=== PATIENT | female | born 1955 | race Hispanic/Latino ===

== ENCOUNTER 2024-08-31 14:26 | Emergency (ER) | payer OTHER ==
[~2024-08-31] VITALS: Ht 157.5 cm; Wt 55.3 kg
[2024-08-31 15:22] VITALS: BP 149/89; PULSE 80; RESP 18; TEMP 98.4; O2SAT 97
== END 2024-08-31 15:23 | disposition home or self-care (01) ==
LOC: EDH 14:26
DX: G62.9 Polyneuropathy, unspecified (principal)
CPT/HCPCS: 99282

== ENCOUNTER 2024-11-28 18:14 | Inpatient (IN) | payer OTHER ==
[~2024-11-28] VITALS: Ht 157.5 cm; Wt 50.3 kg
[~2024-11-28 18:14] MED LIST: LEVO100T12 PO; MIRT-93 PO; PREG50CA64 PO
--- NOTE | 2024-11-28 18:25 | NUR ---
PT JUST NOW PLACED IN MY ED BED 20
--- NOTE | 2024-11-28 19:18 | NUR ---
REPORT ENDORSED TO [facility]
--- NOTE | 2024-11-28 19:24 | ERN ---
General Chief Complaint: Numbness Stated Complaint: LEG Time Seen by MD: 18:38 History of Present Illness Initial Comments Mrs Ghosh is a 69-year-old female significant past medical history of chronic debility with left arm weakness who presents today with a chief complaint of left facial weakness and like weakness. Patient apparently has been having issues with mobility and movement over the last several months.. Patient has been treated for autoimmune nephropathy. Patient states she was at her baseline health earlier today when she started feeling numbness on her left face. Patient was brought here for further evaluation and care Allergies: Coded Allergies: No Known Allergies (Unverified Allergy, Unknown, 08/31/24) Home Meds Reported Medications Pregabalin (Pregabalin) 50 Mg Capsule, 50 MG PO HS, CAP 10/05/24 Mirtazapine (Mirtazapine) 30 Mg Tablet, 1 TAB PO HS for 30 Days, #30 TAB 0 Refills 10/05/24 Levothyroxine Sodium (Levothyroxine Sodium) 100 Mcg Tablet, 1 TAB PO DAILY for 30 Days, #30 TAB 0 Refills 10/05/24 Past Medical History Past Medical History: High Cholesterol, Other Medical History Other: FAILURE TO THRIVE Past Surgical History: None Female( History) History: Not Applicable ROS Dictation Constitutional: Negative for fever,chills, and weight loss Eyes: Negative for injury, pain,redness, and discharge ENT: Negative for injury,pain or swelling Cardiovascular: Negative for chest pain, palpitations, and edema Respiratory: Negative for shortness of breath, cough, and wheezing, Abdomen/GI: Negative for abdominal pain, nausea, vomiting, diarrhea, and constipation Back: Negative for injury and pain : Negative for injury, bleeding and discharge MS/Extremity: Negative for injury and deformity Skin: Negative for rash, and discoloration Neuro: Weakness, numbness over face Psych: Negative for suicide ideation, homicidal ideation, and hallucinations Physical Exam Physical Exam Dictation General: awake, alert, NAD Head/Face: Normocephalic, atraumatic Eyes: PERRL, EOMI, ENT: oral cavity clear Neck: Trachea midline, supple Cardiovascular: RRR, normal S1/S2 Respiratory: CTAB, no respiratory distress Abdomen: Soft, non-tender, non-distended Skin: Warm, dry, normal turgor, no rash MS/Extremity: Pulses equal, no cyanosis, Neuro: COAx4, GCS 15, strength 5/5 Results Laboratory and Microbiology Lab and Micro Result Laboratory Tests Test 11/28/24 19:13 White Blood Count 8.0 K/uL (4.8-10.8) Red Blood Count 3.97 MIL/uL (4.00-5.50) L Hemoglobin 11.5 g/dL (12.0-16.0) L Hematocrit 36.6 % (36-48) Mean Corpuscular Volume 92.2 fL (79-99) Mean Corpuscular Hemoglobin 29.0 pg (27.0-33.0) Mean Corpuscular Hemoglobin Concent 31.4 g/dL (32.0-36.0) L Red Cell Distribution Width 16.7 % (11.0-15.5) H Platelet Count 264 K/uL (130-400) Mean Platelet Volume 11.9 fL (7.5-10.5) H Immature Granulocyte % (Auto) 2.4 % (0-1) H Neutrophils (%) (Auto) 86.0 % (40.0-77.0) H Lymphocytes (%) (Auto) 9.1 % (21.0-51.0) L Monocytes (%) (Auto) 2.4 % (3.0-13.0) L Eosinophils (%) (Auto) 0.0 % (0.0-8.0) Basophils (%) (Auto) 0.1 % (0.0-5.0) Neutrophils # (Auto) 6.9 K/uL (1.8-7.7) Lymphocytes # (Auto) 0.7 K/uL (1.0-4.8) L Monocytes # (Auto) 0.2 K/uL (0.1-1.0) Eosinophils # (Auto) 0.00 K/uL (0.00-0.70) Basophils # (Auto) 0.01 K/uL (0.00-0.20) Absolute Immature Granulocyte (auto 0.19 K/uL (0-1) Nucleated Red Blood Cells 0.0 % (0.0-0.19) White Cell Morphology Comment See comments Sodium Level 142 mmol/L (136-145) Potassium Level 4.1 mmol/L (3.5-5.1) Chloride Level 107 mmol/L (101-111) Carbon Dioxide Level 30 mmol/L (21-32) Blood Urea Nitrogen 22 mg/dL (7-18) H Creatinine 0.7 mg/dL (0.5-1.0) Glomerular Filtration Rate Calc 93 mL/min (>90) Random Glucose 167 mg/dL (70-105) H Total Calcium 8.6 mg/dL (8.5-10.1) Total Creatine Kinase 14 U/L (21-232) #L Troponin I High Sensitivity 9.0 ng/L (4-50) MDM Patient will be admitted for further evaluation and care with a an MRI brain and spine. After speaking with of neurology he agrees with admission MDM: Differential diagnosis: Neuropathy Rationale: Tests considered and ordered secondary to shared decision making include: labs, ECG and radiology Previous outside records reviewed: Old ER visits. Risk of complication and/or morbidity or mortality of patient management: None Medications-Per medication reconciliation Need for hospitalization: Patient does meet criteria for hospitalization. Need for emergency major/minor surgery: No There are no social concerns with this patient. Prescription drug management Prescriptions will include symptomatic care Patient's prior external medical records from other ER visits were reviewed by me as indicated. Prior testing and results from previous visits were reviewed. Prior tests were taken into account with medical decision making and resource utilization, independent historian/historians were used to obtain complete medical history. I independently interpreted the test that were performed, results were reviewed by me and considered findings on radiology if ordered. Medical management and examination interpretation discussions were had by me with other qualified healthcare professionals as indicated for the patient's care. ED Course Orders Procedure Category Date Status Time Cbc With Differential LAB 11/28/24 Complete 18:50 Cardiac Panel LAB 11/28/24 Complete 18:50 Urinalysis Profile LAB 11/28/24 Logged 18:50 Chest 1vw RAD 11/28/24 Resulted 18:50 Ct Head/Brain W/O CT 11/28/24 Resulted Contrast 18:50 Basic Metabolic Panel LAB 11/28/24 Complete 18:50 Aspirin 81mg Chew Tab PHA 11/28/24 Complete (Aspirin 81mg Chew 19:00 Atorvastatin 40mg PHA 11/28/24 Complete (Lipitor 40mg) 19:00 Admit Orders ADM 11/28/24 Transmitted 20:58 Current Medications Medications (Trade) Dose Ordered Sig/Kerry Route PRN Reason Start Time Stop Time Status Last Admin Dose Admin Aspirin (Aspirin 81mg Chew Tab) 324 mg ONCE ONCE PO 11/28/24 19:00 11/28/24 19:01 DC 11/28/24 20:44 Atorvastatin Calcium (LIPItor 40MG) 40 mg ONCE ONCE PO 11/28/24 19:00 11/28/24 19:01 DC 11/28/24 20:44 Vital Signs Date Time Temp Pulse Resp B/P (MAP) Pulse Ox O2 Delivery O2 Flow Rate FiO2 11/28/24 20:05 43 16 147/82 98 Room Air* 0 21 11/28/24 18:17 97.3 49 16 148/80 98 Room Air 0 DX & DISP Disposition: Discharge Departure Impression: Primary Impression: Peripheral neuropathy Condition: Stable Referrals: SHAISTA SCHUSTER MD (PCP) TEJAL DUTTA MD Nov 28, 2024 19:24
[2024-11-28 19:42] LABS: BASOPHILS # (AUTO) 0.01 K/uL (0.00-0.20); BASOPHILS % (AUTO) 0.1 % (0.0-5.0); HEMATOCRIT 36.6 % (36-48); IMMATURE GRANULOCYTE ABSOLUTE 0.19 K/uL (0-1); LYMPHOCYTES # (AUTO) 0.7 K/uL (1.0-4.8); LYMPHOCYTES % (AUTO) 9.1 % (21.0-51.0); MEAN CORPUSCULAR HGB CONC 31.4 g/dL (32.0-36.0); MEAN CORPUSCULAR VOLUME 92.2 fL (79-99); MONOCYTES # (AUTO) 0.2 K/uL (0.1-1.0); MONOCYTES % (AUTO) 2.4 % (3.0-13.0); NEUTROPHILS # (AUTO) 6.9 K/uL (1.8-7.7); PLATELET COUNT (AUTO) 264 K/uL (130-400); RED BLOOD CELL COUNT(AUTO) 3.97 MIL/uL (4.00-5.50); RED CELL DISTRIBUTION WIDTH 16.7 % (11.0-15.5)
[2024-11-28 19:47] LABS: CREATININE 0.7 mg/dL (0.5-1.0); POTASSIUM 4.1 mmol/L (3.5-5.1)
--- NOTE | 2024-11-28 19:49 | HMCIMG ---
Exam Type: CT HEAD/BRAIN W/O CONTRAST Clinical Information: facial numbness Comparison: None CT Dose Index (CTDI): 57.33 mGy Dose Length Product (DLP): 956.79 total mGy-cm Findings: The examination shows atrophy. There is low attenuation throughout the periventricular white matter locations, consistent with chronic small vessel ischemic changes. No acute intra- or extra-axial fluid collections are seen. There is no evidence of acute or chronic hemorrhage. There is no mass effect or shift of midline structures. There are no areas to suggest acute infarct. The skull windows show no significant abnormalities. IMPRESSION: 1. ATROPHY AND CHRONIC SMALL VESSEL ISCHEMIC CHANGES. This study was performed using dose reduction techniques to include automated exposure control and/or adjustment of the mA and/or kV according to patient size.
--- NOTE | 2024-11-28 20:00 | HMCIMG ---
Exam Type: CHEST 1VW Clinical Information: SYNCOPE Comparison: None Findings: The lungs are clear of infiltrates. The heart is enlarged. Bony and soft tissue structures of the chest wall are unremarkable. IMPRESSION: Cardiomegaly. Clear lungs.
[2024-11-28] MEDS: atorVAStatin 40 MG TABLET PO ONE (20:44)
[2024-11-28] MEDS: ASPIRIN 81MG CHEW TAB PO ONE (20:44)
[2024-11-28] MEDS ORDERED: doCUSate SODIUM 100 MG CAP PO PRN (23:00)
[2024-11-28] MEDS ORDERED: acetaMINOPHEN 325 MG TAB PO PRN ×2 (23:00)
[2024-11-28] MEDS ORDERED: 0.9%NACL 1000ML 1,000 ML IV SCH (23:00)
[2024-11-28] MEDS ORDERED: ondanSETRON 4MG INJ IVP PRN (23:00)
[2024-11-28] MEDS ORDERED: acetaMINOPHEN 650 MG SUPPOSITORY RC PRN ×2 (23:00)
--- NOTE | 2024-11-29 01:17 | HP ---
[facility] HISTORY & PHYSICAL Date Patient Seen: Nov 29, 2024 Time of Visit: 01:15 Supervising Physician: Dr. Vasquez Taveras Primary Care Physician: SHAISTA SCHUSTER MD, Dr. Outpatient Specialists: Dr. Shanelle Mast, neurology in [place], [place] Dr. Kaylah Perez, rheumatology Inpatient Consults: Dr. Thurston, neurology PROBLEM LIST: Severe progressive peripheral neuropathy, POA Left leg weakness, POA Autoimmune neuropathy, POA Left facial paraesthesia, POA Severe bradycardia, asymptomatic -heart rate as low as 36 bpm baseline heart rate 40 beats per minute -suspect neurogenic bradycardia Acute on chronic kidney disease, POA Hyperglycemia, POA Failure to thrive, POA Debility/frailty/weakness, POA Cachectic Chronic anemia, POA Chronic problem list: Autoimmune neuropathy, Hypertension, hypothyroidism, hypokalemia, abnormal weight loss, leukocytosis, debility/frailty/weakness HPI: Mrs Ghosh is a 69-year-old female significant medical history of chronic debility with left arm weakness who presented to [facility] ED for evaluation of left facial numbness and weakness. Patient the patient reports chronically having issues with mobility and movement over the last several months. Patient has been treated for autoimmune nephropathy. Patient states she was at her baseline health earlier today when at 4:30 p.m. she started feeling numbness on her left face then she started with increased left leg mobility which prompted her ED visit. The patient reports that at baseline she is able to walk with a walker. She states that today she could not lift her leg out of the bed. She reports that she was recently discharged from some [facility] for therapy due to her insurance not covering. She reports that she was only one week at home and now with this weakness she is back at the hospital. She reports that her composition molder Dr. Mast and other physicians can tell her what is wrong with her. She reports that ER physician informed her that he spoke to Dr. Thurston, neurologist here at [facility] and that the plan is to MRI the head and all her spine. She reports that she agreed with this because she wants an answered to her problem. ED physician requested patient be admitted with the diagnosis of peripheral neuropathy. I went to assess the patient in ED 20. No family at bedside. Breathing is even, unlabored, heart rate 49. BP 1 40s systolic. The patient is awake, alert oriented x4. The patient denies chest pain, shortness of breath, any other pain. Upon assessment the patient is not able to lift the left leg off of the bed. She is able to move it very little. She asked me if she was able to move the leg off of the bed. Her left arm is totally flaccid and contracted she reports that her left arm is at baseline. Legs are very thin, muscle loss (cachetic). ER physician reports informing Dr. Thurston, neurology of the patient who reports that he will see the patient tomorrow. I informed the patient of labs, diagnostics, and plan of care. She verbalizes understanding and is in agreement with the plan. Plan and assessment as listed below. PAST MEDICAL HX: see above PAST SURGICAL HX: noncontributory SOCIAL HISTORY: No tobacco, ETOH, or illicit drug use Coded Allergies: No Known Allergies (Unverified Allergy, Unknown, 08/31/24) REVIEW OF SYSTEMS: 12 point ROS reviewed with patient. Pertinent positives mentioned above. Otherw ise negative. PHYSICAL EXAM: GENERAL: Alert, weak, awake oriented x 4, cachectic HEENT: EOMI, Sclera non icteric, moist mucosa NECK: Supple, no JVD, trachea midline LUNGS: Clear breath sounds bilaterally. No wheezes HEART: Regular rate and rhythm. Normal S1 and S2, without murmurs ABD: Abdomen soft, nontender. Bowel sounds present EXT: No clubbing cyanosis or edema. NEURO: Alert and oriented X4, follows commands. Unable to lifts the left leg off of the bed. She is able to move it slightly. She asked me if she was able to move the leg off of the bed. Her left arm is totally flaccid and contracted she reports that her left arm is at baseline. Legs are very thin, muscle loss (cachetic). Vital Signs (last 8hr) Date Time Temp Pulse Resp B/P (MAP) Pulse Ox O2 Delivery O2 Flow Rate FiO2 11/28/24 23:52 44 15 146/65 99 Room Air* 0 21 11/28/24 20:05 43 16 147/82 98 Room Air* 0 21 11/28/24 18:17 97.3 49 16 148/80 98 Room Air 0 LABS: Hematology Labs: Test 11/28/24 19:13 Range/Units White Blood Count 8.0 4.8-10.8 K/uL Red Blood Count 3.97 L 4.00-5.50 MIL/uL Hemoglobin 11.5 L 12.0-16.0 g/dL Hematocrit 36.6 36-48 % Mean Corpuscular Volume 92.2 79-99 fL Mean Corpuscular Hemoglobin 29.0 27.0-33.0 pg Mean Corpuscular Hemoglobin Concent 31.4 L 32.0-36.0 g/dL Red Cell Distribution Width 16.7 H 11.0-15.5 % Platelet Count 264 130-400 K/uL Mean Platelet Volume 11.9 H 7.5-10.5 fL Immature Granulocyte % (Auto) 2.4 H 0-1 % Neutrophils (%) (Auto) 86.0 H 40.0-77.0 % Lymphocytes (%) (Auto) 9.1 L 21.0-51.0 % Monocytes (%) (Auto) 2.4 L 3.0-13.0 % Eosinophils (%) (Auto) 0.0 0.0-8.0 % Basophils (%) (Auto) 0.1 0.0-5.0 % Neutrophils # (Auto) 6.9 1.8-7.7 K/uL Lymphocytes # (Auto) 0.7 L 1.0-4.8 K/uL Monocytes # (Auto) 0.2 0.1-1.0 K/uL Eosinophils # (Auto) 0.00 0.00-0.70 K/uL Basophils # (Auto) 0.01 0.00-0.20 K/uL Absolute Immature Granulocyte (auto 0.19 0-1 K/uL Nucleated Red Blood Cells 0.0 0.0-0.19 % White Cell Morphology Comment See comments Chemistry Labs: Test 11/28/24 19:13 Range/Units Sodium Level 142 136-145 mmol/L Potassium Level 4.1 3.5-5.1 mmol/L Chloride Level 107 101-111 mmol/L Carbon Dioxide Level 30 21-32 mmol/L Blood Urea Nitrogen 22 H 7-18 mg/dL Creatinine 0.7 0.5-1.0 mg/dL Glomerular Filtration Rate Calc 93 >90 mL/min Random Glucose 167 H 70-105 mg/dL Total Calcium 8.6 8.5-10.1 mg/dL Total Creatine Kinase 14 #L 21-232 U/L Troponin I High Sensitivity 9.0 4-50 ng/L DIAGNOSTICS / RADIOLOGY RESULTS: [ ] PLAN Admit to PCCU with continuous cardiac monitoring. Neuro checks every 4 hours and as needed. [id number] mg p.o. daily. Atorvastatin 40 mg p.o. daily. Blood pressure checks every 4 hours and as needed. Monitor heart rate closely. Systolic blood pressure between 120 and 160 to maintain adequate brain perfusion. Keep NPO for now until passes dysphagia screen by nurse. Plan for MRI in the morning. Pending echo complete with spectral +color Doppler. Consult Neurology in the morning left leg weakness, worsening from baseline and facial paresthesia. (ED did the initial consult to neurology on 11/28/2024. Who agrees to see the patient as consult) Consult cardiology in the morning for bradycardia heart rate as low as 36 bpm. Reconcile home medications once available. Glucometer checks a.c. and HS with insulin regular sliding scale per protocol. PT and OT evaluation and treat. A.m. labs. Monitor renal and liver function. Monitor electrolytes and treat accordingly. GI and DVT prophylaxis. NEURO: Minimize central acting medications as possible. Maintain fall precautions, adequate lighting during the day PULMONARY: Supplemental 02 as needed. Maintain aspiration precautions at all times CARDIOVASCULAR: Follow hemodynamics. Vital signs per facility protocol GI & NUTRITION: Continue with nutritional support. Continue stool softeners and laxatives as needed. KIDNEYS & ELECTROLYTES: Strict monitoring of intake, output and overall fluid balance. Avoid nephrotoxic medications to the extent possible. Medications to be dosed according to renal function. Monitor electrolytes and replace as needed ENDOCRINE: Maintain blood glucose between 100-180 at all times. Hypoglycemia protocol in place INFECTIOUS DISEASE: Trend temperature, WBC and procalcitonin level Follow cultures, deescalate antibiotics as soon as possible. Panculture if new onset fever ONCOLOGY/HEMATOLOGY/COAGULATION: Monitor for s/s of bleeding Monitor hemoglobin, coagulation studies as needed SKIN: Pressure ulcer prevention per facility protocol Specialty mattress ORTHO/REHAB: Continue PT/OT Prophylaxis: Continue GI and DVT prophylaxis Code Status: Full Resuscitation Disposition: TBD Due to a high probability for clinically significant, life-threatening deterioration, the patient required my highest level of preparedness to intervene emergently, and I personally spent 60 minutes of critical care time directly and personally managing the patient. I devoted my full attention to the patient during this time, which is separate from time spent on any billable procedures. This includes time spent involved in work directly related to the care of the patient: such as review of prior records, development of treatment plan with patient as well as nursing, discussions with consultants, evaluation of patient's response to treatment, examination of patient, obtaining history from patient, ordering and performing treatments and interventions, ordering and review of laboratory studies, ordering and review of radiographic studies, pulse oximetry and re-evaluation of patient's condition, discussions with the family members and the patient, and any required documentation. This critical care time was performed to assess and manage the high probability of imminent life- threatening deterioration that could result in multi-organ failure. This dictation was prepared using iPling voice recognition software. As a result, errors may occur. When identified, these errors have been corrected. While every attempt is made to correct errors during dictation, errors may still exist. NORAH CADET LICENSED NURSE PRACTITIONER Nov 29, 2024 01:17
--- NOTE | 2024-11-29 04:59 | NUR ---
PATIENT HEART RATED NOTED TO BE 36 SIN[address] ROCHELLE; PATIENT ASYPTOMATIC VERBAL AND CONVERSIVE; PATIENT FOLLOWS COMMANDS AND QUESTIONS; ALYSSIA PRODUCE SORTER WITH ADMITTING TEAM NOTIFIED.
--- NOTE | 2024-11-29 06:31 | NUR ---
EKG SHOWN TO ALYSSIA FRONT DESK RECEPTIONIST LIQUEFACTION AND REGASIFICATION HELPER; CONSULT CARDIOLOGY IN AM AND UPGRADE TO PCCU.
[2024-11-29 06:55] LABS: APPEARANCE,URINE CLEAR (CLEAR); BILIRUBIN,URINE NEGATIVE (NEGATIVE); COLOR,URINE COLORLESS (YELLOW); GLUCOSE, URINE (UA) NEGATIVE (NEGATIVE); KETONES,URINE NEGATIVE (NEGATIVE); LEUKOCYTE ESTERASE ,URINE NEGATIVE Leu/uL (NEGATIVE); NITRATE,URINE NEGATIVE (NEGATIVE); OCCULT BLOOD,URINE NEGATIVE (NEGATIVE); PH,URINE 7.5 (5.0-8.0); PROTEIN,URINE NEGATIVE (NEGATIVE); UROBILINOGEN,URINE 0.2 mg/dL (0.2-1.0)
--- NOTE | 2024-11-29 07:12 | NUR ---
REPORT GIVEN TO PRASANNA RN AT THIS TIME
[2024-11-29 07:17] LABS: ADD UA MICROSCOPIC NO
[2024-11-29 08:04] LABS: HEMOGLOBIN A1C 5.5 % (4.0-6.0)
[2024-11-29 08:16] LABS: CHOLESTEROL 189 mg/dL (<200); HDL CHOLESTEROL 77 mg/dL (35-85); LDL DIRECT 84 mg/dL (0-99); TRIGLYCERIDES 161 mg/dL (30-200)
--- NOTE | 2024-11-29 08:30 | NUR ---
PT CLEANED OF INCONTINENCE, LINEN CHANGED, PUREWICK PLACED, PT TOLORATED WELL
--- NOTE | 2024-11-29 08:37 | EKG ---
[facility] Test Date: 2024-11-29 Test Time: 06:18:47 Pat Name: SUSU CANO Department: [facility] Room: 228 Gender: F Necktie Turner: [id number] : 1955 Requested By: NORAH CADET Order Number: [id number] Reading MD: Marcio Viveros Measurements Intervals [place] Rate: 36 P: 36 TX: 143 QRS: -28 QRSD: 112 T: 5 QT: 588 QTc: 453 Interpretive Statements Sinus bradycardia Compared to ECG 10/05/2024 15:48:41 Sinus rhythm no longer present Prolonged QT interval no longer present Electronically Signed On 11-29-2024 21:24:05 BRIDGES AND BUILDINGS SUPERVISOR by Marcio Viveros Please click the below link to view image of tracing.
[2024-11-29] MEDS: ENOXAPARIN SODIUM 30 MG/0.3 ML SQ SCH (09:40)
[2024-11-29] MEDS: ASPIRIN 81MG CHEW TAB PO SCH (09:41)
[2024-11-29] MEDS: FAMOTIDINE 20MG TAB PO SCH (09:44)
[2024-11-29] MEDS: atorVAStatin 40 MG TABLET PO SCH (09:44)
--- NOTE | 2024-11-29 11:30 | NUR ---
BS-73, DR. FALLON PAGED TO MAKE AWARE DUE TO PT NPO STATUS.
--- NOTE | 2024-11-29 12:42 | NUR ---
SHERLY RETURNED CALL, REPORTED BS- 73, BEDSIDE SWOLLOW AND MAY HAVE A CONSISTENT CARB DIET.
--- NOTE | 2024-11-29 14:55 | NUR ---
SPEECH LANGUAGE EVALUATION: Patient was evaluated with a comprehensive expressive, receptive, and cognitive assessment and presented with a mild cognitive deficits and mild dysarthria. As per patient, this is not a new onset and has been receiving outpatient therapy services since her last hospitalization (2 months ago). Patient was oriented x4 and was able to express wants and needs in complete sentences with adequate description. Patient's expressive/receptive language abilities are within normal limits for her level of education. In the area of cognition, patient demonstrated mild deficits in short term memory recall as indicated by a score of 13/15 on BIMS. Patient presented with symptoms of mild dysarthria as characterized by slurred speech. Intelligibility however, is intact. As per patient and spouse, symptoms appeared 2-3 months ago and have improved greatly since then. Speech therapy not warranted at this time. LITIGATION MANAGER reviewed results and recommendations with patient, family, and JIGAR Ag. Patient/family voiced understanding. All questions answered. Addendum: 11/29/24 at 1554 by NIGHAT MONTANA Amended: Links added.
--- NOTE | 2024-11-29 15:00 | NUR ---
BEDSIDE SWALLOW EVAL COMPLETED. No s/s of aspiration. Recommend chopped solids, thin liquids, and whole meds with liquids. Compensatory strategies 1. Sit upright 2. slow oral intake 3. Alt between solids and liquids BREAKER ENGINEER reviewed results and recommendations with patient, family, and nurse Ancelmo. BREAKER ENGINEER educated patient on risk and consequences of aspiration. Speech Therapy not warranted at this time. All questions answered. Addendum: 11/29/24 at 1559 by NIGHAT MONTANA Amended: Links added.
[2024-11-29 15:30] VITALS: BP 128/73; PULSE 54; RESP 20; TEMP 98.7
[2024-11-29] MEDS ORDERED: OMEP40CA21 PO (16:02)
[2024-11-29] MEDS ORDERED: PRED20TA3 PO ×2 (16:02)
[2024-11-29] MEDS ORDERED: METO25TA6 PO (16:02)
[2024-11-29] MEDS ORDERED: LEVO112T7 PO (16:02)
[2024-11-29 16:22] VITALS: O2SAT 98
--- NOTE | 2024-11-29 18:28 | PN ---
[facility] PROGRESS NOTE Date Patient Seen: Nov 29, 2024 Time of Visit: 18:27 Supervising Physician: Dr. Taveras Primary Care Physician: SHAISTA SCHUSTER MD, Dr. Outpatient Specialists: Dr. Shanelle Mast, neurology in [place], [place] Dr. Kaylah Perez, rheumatology Inpatient Consults: Dr. Thurston, neurology PROBLEM LIST: Severe progressive peripheral neuropathy, POA Left leg weakness, POA Autoimmune neuropathy, POA Left facial paraesthesia, POA Severe bradycardia, asymptomatic -heart rate as low as 36 bpm baseline heart rate 40 beats per minute -suspect neurogenic bradycardia Acute on chronic kidney disease, POA Hyperglycemia, POA Failure to thrive, POA Debility/frailty/weakness, POA Cachectic Chronic anemia, POA Chronic problem list: Autoimmune neuropathy, Hypertension, hypothyroidism, hypokalemia, abnormal weight loss, leukocytosis, debility/frailty/weakness INTERVAL HISTORY: HPI: Mrs Ghosh is a 69-year-old female significant medical history of chronic debility with left arm weakness who presented [place] [facility] for evaluation of left facial numbness and weakness. Patient the patient reports chronically having issues with mobility and movement over the last several months. Patient has been treated for autoimmune nephropathy. Patient states she was at her baseline health earlier today when at 4:30 p.m. she started feeling numbness on her left face then she started with increased left leg mobility which prompted her ED visit. The patient reports that at baseline she is able to walk with a walker. She states that today she could not lift her leg out of the bed. She reports that she was recently discharged from some [facility] for therapy due to her insurance not covering. She reports that she was only one week at home and now with this weakness she is back at the hospital. 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 She reports that ER physician informed her that he spoke to Dr. Thurston, neurologist here at [facility] and that the plan is to MRI the head and all her spine. She reports that she agreed with this because she wants an answered to her problem. ED physician requested patient be admitted with the diagnosis of peripheral neuropathy. Interval history 11/29 patient is awake and oriented x3 no event overnight. Patient stated that her left-side motor function remains weak. Patient has left upper arm paralysis but was able to move bilateral lower extremity. This times is unable to do that. We will obtain MRI of the brain. Otherwise we will obtain lab in the morning. We will obtain recommendation from Neurology. Home medications. REVIEW OF SYSTEMS: 12 point ROS reviewed with patient. Pertinent positives mentioned above. Otherwise negative. PHYSICAL EXAM: GENERAL: Alert, weak, awake oriented x 4, cachectic HEENT: EOMI, Sclera non icteric, moist mucosa NECK: Supple, no JVD, trachea midline LUNGS: Clear breath sounds bilaterally. No wheezes HEART: Regular rate and rhythm. Normal S1 and S2, without murmurs ABD: Abdomen soft, nontender. Bowel sounds present EXT: No clubbing cyanosis or edema. NEURO: Alert and oriented X4, follows commands. Unable to lifts the left leg off of the bed. She is able to move it slightly. She asked me if she was able to move the leg off of the bed. Her left arm is totally flaccid and contracted she reports that her left arm is at baseline. Legs are very thin, muscle loss (cachetic). Vital Signs (last 8hr) Date Time Temp Pulse Resp B/P (MAP) Pulse Ox O2 Delivery O2 Flow Rate FiO2 11/29/24 16:22 98 Room Air* 0 21 11/29/24 15:30 98.8 54 20 128/73 98 Room Air 11/29/24 15:00 N/A Room Air 11/29/24 14:59 55 20 121/56 99 Room Air* 0 21 11/29/24 14:00 55 20 98 Room Air* 0 21 LABS: Hematology Labs: Test 11/28/24 19:13 Range/Units White Blood Count 8.0 4.8-10.8 K/uL Red Blood Count 3.97 L 4.00-5.50 MIL/uL Hemoglobin 11.5 L 12.0-16.0 g/dL Hematocrit 36.6 36-48 % Mean Corpuscular Volume 92.2 79-99 fL Mean Corpuscular Hemoglobin 29.0 27.0-33.0 pg Mean Corpuscular Hemoglobin Concent 31.4 L 32.0-36.0 g/dL Red Cell Distribution Width 16.7 H 11.0-15.5 % Platelet Count 264 130-400 K/uL Mean Platelet Volume 11.9 H 7.5-10.5 fL Immature Granulocyte % (Auto) 2.4 H 0-1 % Neutrophils (%) (Auto) 86.0 H 40.0-77.0 % Lymphocytes (%) (Auto) 9.1 L 21.0-51.0 % Monocytes (%) (Auto) 2.4 L 3.0-13.0 % Eosinophils (%) (Auto) 0.0 0.0-8.0 % Basophils (%) (Auto) 0.1 0.0-5.0 % Neutrophils # (Auto) 6.9 1.8-7.7 K/uL Lymphocytes # (Auto) 0.7 L 1.0-4.8 K/uL Monocytes # (Auto) 0.2 0.1-1.0 K/uL Eosinophils # (Auto) 0.00 0.00-0.70 K/uL Basophils # (Auto) 0.01 0.00-0.20 K/uL Absolute Immature Granulocyte (auto 0.19 0-1 K/uL Nucleated Red Blood Cells 0.0 0.0-0.19 % White Cell Morphology Comment See comments Chemistry Labs: Test 11/29/24 11:36 11/29/24 07:24 11/28/24 19:13 Range/Units Whole Blood Glucose 73 70-110 MG/DL Hemoglobin A1c 5.5 4.0-6.0 % Estimated Average Glucose (eAG) 111 70-126 mg/dL Triglycerides Level 161 30-200 mg/dL Cholesterol Level 189 # <200 mg/dL LDL Cholesterol 84 0-99 mg/dL HDL Cholesterol 77 35-85 mg/dL Sodium Level 142 136-145 mmol/L Potassium Level 4.1 3.5-5.1 mmol/L Chloride Level 107 101-111 mmol/L Carbon Dioxide Level 30 21-32 mmol/L Blood Urea Nitrogen 22 H 7-18 mg/dL Creatinine 0.7 0.5-1.0 mg/dL Glomerular Filtration Rate Calc 93 >90 mL/min Random Glucose 167 H 70-105 mg/dL Total Calcium 8.6 8.5-10.1 mg/dL Total Creatine Kinase 14 #L 21-232 U/L Troponin I High Sensitivity 9.0 4-50 ng/L DIAGNOSTICS / RADIOLOGY RESULTS: [ ] PLAN Admit to PCCU with continuous cardiac monitoring. Neuro checks every 4 hours and as needed. Dvfythm59 mg p.o. daily. Atorvastatin 40 mg p.o. daily. Blood pressure checks every 4 hours and as needed. Monitor heart rate closely. Systolic blood pressure between 120 and 160 to maintain adequate brain perfusion. Keep NPO for now until passes dysphagia screen by nurse. Plan for MRI in the morning. Pending echo complete with spectral +color Doppler. Consult Neurology in the morning left leg weakness, worsening from baseline and facial paresthesia. (ED did the initial consult to neurology on 11/28/2024. Who agrees to see the patient as consult) Consult cardiology in the morning for bradycardia heart rate as low as 36 bpm. Reconcile home medications once available. Glucometer checks a.c. and HS with insulin regular sliding scale per protocol. PT and OT evaluation and treat. A.m. labs. Monitor renal and liver function. Monitor electrolytes and treat accordingly. GI and DVT prophylaxis. NEURO: Minimize central acting medications as possible. Maintain fall precautions, adequate lighting during the day PULMONARY: Supplemental 02 as needed. Maintain aspiration precautions at all times CARDIOVASCULAR: Follow hemodynamics. Vital signs per facility protocol GI & NUTRITION: Continue with nutritional support. Continue stool softeners and laxatives as needed. KIDNEYS & ELECTROLYTES: Strict monitoring of intake, output and overall fluid balance. Avoid nephrotoxic medications to the extent possible. Medications to be dosed according to renal function. Monitor electrolytes and replace as needed ENDOCRINE: Maintain blood glucose between 100-180 at all times. Hypoglycemia protocol in place INFECTIOUS DISEASE: Trend temperature, WBC and procalcitonin level Follow cultures, deescalate antibiotics as soon as possible. Panculture if new onset fever ONCOLOGY/HEMATOLOGY/COAGULATION: Monitor for s/s of bleeding Monitor hemoglobin, coagulation studies as needed SKIN: Pressure ulcer prevention per facility protocol Specialty mattress ORTHO/REHAB: Continue PT/OT Prophylaxis: Continue GI and DVT prophylaxis Code Status: Full Resuscitation Disposition: AGNES CASTILLOJAKI COYLOBO KESSLER Nov 29, 2024 18:28
[2024-11-29 19:45] VITALS: BP 126/69; PULSE 53; RESP 16; TEMP 97.8
[2024-11-29 20:00] VITALS: O2SAT 98
[2024-11-29] MEDS: mirtAZAPine 15 MG TABLET PO SCH (20:42)
[2024-11-29] MEDS: predniSONE 20 MG TABLET PO SCH (20:42)
--- NOTE | 2024-11-29 22:13 | HMCIMG ---
CAROTID ULTRASOUND CLINICAL INFORMATION:left sided paralysis Carotid bifurcations: There is mild calcified plaque at the bilateral carotid bifurcations. Vertebrals: Antegrade bilaterally RCCA: 47 cm/s LCCA: 43 cm/s ERICKA: 57 cm/s LICA: 61 cm/s Ratio: 1.2 Ratio: 1.4 IMPRESSION: Mild atherosclerotic vascular disease with no identified hemodynamically significant stenoses.
[2024-11-29 22:54] VITALS: BP 137/74; PULSE 52; RESP 16; TEMP 98.2
[2024-11-30] VITALS (7 sets, daily range): BP systolic 149–181; BP diastolic 70–99; PULSE 49–75; RESP 16–20; TEMP 97–98.2; O2SAT 100
[2024-11-30 03:58] LABS: BASOPHILS # (AUTO) 0.03 K/uL (0.00-0.20); BASOPHILS % (AUTO) 0.3 % (0.0-5.0); EOSINOPHILS # (AUTO) 0.04 K/uL (0.00-0.70); EOSINOPHILS % (AUTO) 0.4 % (0.0-8.0); HEMATOCRIT 40.2 % (36-48); IMMATURE GRANULOCYTE ABSOLUTE 0.19 K/uL (0-1); LYMPHOCYTES # (AUTO) 1.2 K/uL (1.0-4.8); LYMPHOCYTES % (AUTO) 12.3 % (21.0-51.0); MEAN CORPUSCULAR HEMOGLOBIN 29.6 pg (27.0-33.0); MEAN CORPUSCULAR HGB CONC 31.8 g/dL (32.0-36.0); MEAN CORPUSCULAR VOLUME 93.1 fL (79-99); MONOCYTES # (AUTO) 0.2 K/uL (0.1-1.0); MONOCYTES % (AUTO) 2.1 % (3.0-13.0); NEUTROPHILS # (AUTO) 7.7 K/uL (1.8-7.7); NEUTROPHILS % (AUTO) 82.9 % (40.0-77.0); PLATELET COUNT (AUTO) 198 K/uL (130-400); RED BLOOD CELL COUNT(AUTO) 4.32 MIL/uL (4.00-5.50); WHITE BLOOD COUNT (AUTO) 9.3 K/uL (4.8-10.8)
[2024-11-30 04:31] LABS: POTASSIUM 4.4 mmol/L (3.5-5.1); THYROID STIMULATING HORMONE 3.79 uIU/mL (0.36-3.74)
[2024-11-30] MEDS: levoTHYROxine 100 MCG TABLET PO SCH (06:30)
[2024-11-30] MEDS: levoTHYROxine 112 MCG TABLET PO SCH (06:33)
--- NOTE | 2024-11-30 06:36 | CONS ---
CONSULTATION NOTE Date of Service: Nov 30, 2024 Reason for Consultation: Evaluate generalized weakness Requesting Physician: Dr. Wlilson HISTORY OF PRESENT ILLNESS: This is a 69 years old right-handed lady that has a past medical history re markable for pulmonary fibrosis, hypothyroidism who was admitted for evaluation and management of generalized weakness. The patient states that her weakness started about eight months ago with slowly progressive muscle weakness that started on bilateral lower extremities. According to patient's she started having feet numbness that progressed into numbness and tingling in both feet and hands. Around that time the patient was also diagnosed with pulmonary fibrosis and was started on a medication that caused her to have diarrhea. She mentions that the patient went to see Dr. Mast neurologist in [facility] who diagnosed her with a mild peripheral neuropathy. Over the past four months her muscle weakness have progressed to the point that she was having difficulty ambulating. She was recently discharged from this institution after per patient she was diagnosed with hypothyroidism and needed to be better controlled subsequently the patient was treated add inpatient rehabilitation center where she was completing her therapy. The patient states that over the past 24 hours prior to admission she had a sudden onset of worsening left upper and lower extremity weakness to the point that she was not able to move both extremities. For this reason the patient came into our emergency room. Of note, the patient has severe weight loss over the past several months going from 190-120 lb. The patient also states having an autoimmune diagnosis by Dr. Yun. REVIEW OF SYSTEMS CONSTITUTIONAL: Positive for fatigue. HEAD/FACE: No signs of trauma. EENT: Denies eye pain, blurred vision, double vision, or light sensitivity. RESPIRATORY: Denies shortness of breath, cough, wheezing CARDIOVASCULAR: Denies chest pain, palpitation, syncope GASTROINTESTINAL/ABDOMINAL: Denies abdominal pain, constipation, diarrhea, nausea or vomiting GENITOURINARY: Denies dysuria or hematuria. MUSCULOSKELETAL: Denies joint pain, tenderness, or trauma. INTEGUMENTARY: Denies rash or itchiness NEUROLOGICAL/PSYCH: Bilateral lower extremities weakness PAST MEDICAL HISTORY: Pulmonary fibrosis, hypothyroidism PAST SURGICAL HISTORY: Unknown PAST SOCIAL HISTORY: No tobacco alcohol recreational drug abuse FAMILY HISTORY: No family history of stroke or seizures Coded Allergies: No Known Allergies (Unverified Allergy, Unknown, 08/31/24) PHYSICAL EXAM Mental status: The patient is alert, attentive, and oriented. Speech is clear and fluent with good repetition, comprehension, and naming. Pt recalls 3/3 objects at 5 minutes. Cranial nerves: CN II: Visual wynne are full to confrontation. CN III, IV, : At primary gaze, there is no eye deviation. CN V: Facial sensation is intact to pinprick in all 3 divisions bilaterally. Corneal responses are intact. CN VII: Face is symmetric with normal eye closure and smile. CN VIII: Hearing is normal to rubbing fingers CN IX, X: Palate elevates symmetrically. Phonation is normal. CN XI: Head turning and shoulder shrug are intact CN XII: Tongue is midline with normal movements and no atrophy. Motor: Severe weakness in bilateral upper or lower extremities with hemiplegia in the left upper and lower extremities. The patient has severe muscle atrophy in bilateral upper and lower extremities Reflexes: Reflexes are 0+ and symmetric at the biceps, triceps, knees, and ankles. Plantar responses are flexor. Sensory: Light touch, pinprick, position sense, and vibration sense are intact in fingers and toes. Coordination: Difficulty with rapid alternating movements of to weakness Gait/Stance: Not evaluated Vital Sign (Last 24 Hours) 11/29/24 11/30/24 20:00 03:16 Temp 98.1 Pulse 50 Resp 16 B/P (MAP) 159/79 Pulse Ox 98 O2 Delivery Room Air O2 Flow Rate 0 FiO2 21 Intake & Output (last 24hrs) 11/29/24 11/29/24 11/30/24 15:00 23:00 07:00 Intake Total 225.0 ml 1100.0 ml Output Total 1200 ml Balance 225.0 ml -100.0 ml LABS: Laboratory: Test 11/30/24 05:26 11/30/24 03:42 11/29/24 07:24 11/29/24 06:25 Range/Units Whole Blood Glucose 156 #H 70-110 MG/DL White Blood Count 9.3 4.8-10.8 K/uL Red Blood Count 4.32 4.00-5.50 MIL/uL Hemoglobin 12.8 12.0-16.0 g/dL Hematocrit 40.2 36-48 % Mean Corpuscular Volume 93.1 79-99 fL Mean Corpuscular Hemoglobin 29.6 27.0-33.0 pg Mean Corpuscular Hemoglobin Concent 31.8 L 32.0-36.0 g/dL Red Cell Distribution Width 17.0 H 11.0-15.5 % Platelet Count 198 130-400 K/uL Mean Platelet Volume 11.3 H 7.5-10.5 fL Immature Granulocyte % (Auto) 2.0 H 0-1 % Neutrophils (%) (Auto) 82.9 H 40.0-77.0 % Lymphocytes (%) (Auto) 12.3 L 21.0-51.0 % Monocytes (%) (Auto) 2.1 L 3.0-13.0 % Eosinophils (%) (Auto) 0.4 0.0-8.0 % Basophils (%) (Auto) 0.3 0.0-5.0 % Neutrophils # (Auto) 7.7 1.8-7.7 K/uL Lymphocytes # (Auto) 1.2 1.0-4.8 K/uL Monocytes # (Auto) 0.2 0.1-1.0 K/uL Eosinophils # (Auto) 0.04 0.00-0.70 K/uL Basophils # (Auto) 0.03 0.00-0.20 K/uL Absolute Immature Granulocyte (auto 0.19 0-1 K/uL Nucleated Red Blood Cells 0.0 0.0-0.19 % Sodium Level 141 136-145 mmol/L Potassium Level 4.4 3.5-5.1 mmol/L Chloride Level 105 101-111 mmol/L Carbon Dioxide Level 31 21-32 mmol/L Blood Urea Nitrogen 26 H 7-18 mg/dL Creatinine 1.0 0.5-1.0 mg/dL Glomerular Filtration Rate Calc 61 >90 mL/min Random Glucose 147 H 70-105 mg/dL Total Calcium 8.9 8.5-10.1 mg/dL Thyroid Stimulating Hormone (TSH) 3.79 #H 0.36-3.74 uIU/mL Hemoglobin A1c 5.5 4.0-6.0 % Estimated Average Glucose (eAG) 111 70-126 mg/dL Triglycerides Level 161 30-200 mg/dL Cholesterol Level 189 # <200 mg/dL LDL Cholesterol 84 0-99 mg/dL HDL Cholesterol 77 35-85 mg/dL Urine Color COLORLESS YELLOW Urine Appearance CLEAR CLEAR Urine pH 7.5 5.0-8.0 Urine Specific [place] 1.008 1.001-1.031 Urine Protein NEGATIVE NEGATIVE mg/dL Urine Glucose (UA) NEGATIVE NEGATIVE mg/dL Urine Ketones NEGATIVE NEGATIVE mg/dL Urine Occult Blood NEGATIVE NEGATIVE Urine Nitrate NEGATIVE NEGATIVE Urine Bilirubin NEGATIVE NEGATIVE mg/dL Urine Urobilinogen 0.2 0.2-1.0 mg/dL Urine Leukocyte Esterase NEGATIVE NEGATIVE Juliane/uL Test 11/28/24 19:13 Range/Units White Cell Morphology Comment See comments Total Creatine Kinase 14 #L 21-232 U/L Troponin I High Sensitivity 9.0 4-50 ng/L DIAGNOSTICS / RADIOLOGY: CT scan of the head without contrast: Cortical atrophy ASSESSMENT / PLAN: 1).- chronic polyneuropathy - based on the patient's history and physical examination it is likely this patient has a progressive neurodegenerative chronic polyneuropathy with possible diagnosis including CIDP. Other possible diagnosis includes an autoimmune myopathy but this is less likely. The patient will also be evaluated for possible cervical thoracic and lumbar spine deg eneration causing her overall weakness. We will obtain an MRI of the brain thoracic and lumbar spine with and without contrast. If negative then we will request a lumbar puncture to evaluate for CIDP. I will obtain laboratory workup including ESR, CRP, vitamin B12, folate, anti Marisel, SUSU, CK to evaluate for autoimmune disorders. Obtain more information from Dr. Yun in regards of the reason diagnosis of autoimmune disorder. Request PT/OT prior to discharge Thank you for your consultation JERRY YBARRA MD Nov 30, 2024 06:35
[2024-11-30] MEDS: PANTOPrazole 40 MG TAB DR PO SCH (09:08)
--- NOTE | 2024-11-30 11:30 | PN ---
[facility] PROGRESS NOTE Date Patient Seen: Nov 30, 2024 Time of Visit: 11:30 Supervising Physician: Vasquez Taveras MD Primary Care Physician: SHAISTA SCHUSTER MD, Dr. Outpatient Specialists: Dr. Shanelle Mast, neurology in [place], [place] Dr. Kaylah Perez, rheumatology Inpatient Consults: Dr. Thurston, neurology PROBLEM LIST: Severe progressive peripheral neuropathy, POA Left leg weakness, POA Autoimmune neuropathy, POA Left facial paraesthesia, POA Severe bradycardia, asymptomatic -heart rate as low as 36 bpm baseline heart rate 40 beats per minute -suspect neurogenic bradycardia Acute on chronic kidney disease, POA Hyperglycemia, POA Failure to thrive, POA Debility/frailty/weakness, POA Cachectic Chronic anemia, POA Chronic problem list: Autoimmune neuropathy, Hypertension, hypothyroidism, hypokalemia, abnormal weight loss, leukocytosis, debility/frailty/weakness INTERVAL HISTORY: HPI: Mrs Ghosh is a 69-year-old female significant medical history of chronic debility with left arm weakness who presented to [facility] ED for evaluation of left facial numbness and weakness. Patient the patient reports chronically having issues with mobility and movement over the last several months. Patient has been treated for autoimmune nephropathy. Patient states she was at her baseline health earlier today when at 4:30 p.m. she started feeling numbness on her left face then she started with increased left leg mobility which prompted her ED visit. The patient reports that at baseline she is able to walk with a walker. She states that today she could not lift her leg out of the bed. She reports that she was recently discharged from some [facility] for therapy due to her insurance not covering. She reports that she was only one week at home and now with this weakness she is back at the hospital. She reports that her top former Dr. Mast and other physicians can tell her what is wrong with her. She reports that ER physician informed her that he spoke to Dr. Thurston, neurologist here at [facility] and that the plan is to MRI the head and all her spine. She reports that she agreed with this because she wants an answered to her problem. ED physician requested patient be admitted with the diagnosis of peripheral neuropathy. Interval history 11/29 patient is awake and oriented x3 no event overnight. Patient stated that her left-side motor function remains weak. Patient has left upper arm paralysis but was able to move bilateral lower extremity. This times is unable to do that. We will obtain MRI of the brain. Otherwise we will obtain lab in the morning. We will obtain recommendation from Neurology. Home medications. 11/30- patient is awake alert and oriented x3. She continues with generalized body weakness with increased weakness to left side. Otherwise no major overnight events. Patient is in no apparent distress. He is hemodynamically stable and afebrile. CBC unremarkable similar to yesterday with neutrophils trending down 82.9 today. ESR is 43 elevated. Chemistry is unremarkable creatinine is 1.0 GFR of 61 slightly decreased from yesterday. TSH is 3.79. Patient continues on her levothyroxine. Patient is pending MRI of the brain, thoracic, lumbar and cervical spine. Carotid ultrasound shows mild ar teriosclerotic vascular disease with no identified hemodynamically significant stenosis. REVIEW OF SYSTEMS: 12 point ROS reviewed with patient. Pertinent positives mentioned above. Otherwise negative. PHYSICAL EXAM: GENERAL: Alert, weak, awake oriented x 4, cachectic HEENT: EOMI, Sclera non icteric, moist mucosa NECK: Supple, no JVD, trachea midline LUNGS: Clear breath sounds bilaterally. No wheezes HEART: Regular rate and rhythm. Normal S1 and S2, without murmurs ABD: Abdomen soft, nontender. Bowel sounds present EXT: No clubbing cyanosis or edema. NEURO: Alert and oriented X4, follows commands. Unable to lifts the left leg off of the bed. She is able to move it slightly. She asked me if she was able to move the leg off of the bed. Her left arm is totally flaccid and contracted she reports that her left arm is at baseline. Legs are very thin, muscle loss (cachetic). Vital Signs (last 8hr) Date Time Temp Pulse Resp B/P (MAP) Pulse Ox O2 Delivery O2 Flow Rate FiO2 11/30/24 07:10 100 Room Air* 0 21 11/30/24 07:00 97.7 53 20 149/75 100 Room Air LABS: Hematology Labs: Test 11/30/24 03:42 11/28/24 19:13 Range/Units White Blood Count 9.3 4.8-10.8 K/uL Red Blood Count 4.32 4.00-5.50 MIL/uL Hemoglobin 12.8 12.0-16.0 g/dL Hematocrit 40.2 36-48 % Mean Corpuscular Volume 93.1 79-99 fL Mean Corpuscular Hemoglobin 29.6 27.0-33.0 pg Mean Corpuscular Hemoglobin Concent 31.8 L 32.0-36.0 g/dL Red Cell Distribution Width 17.0 H 11.0-15.5 % Platelet Count 198 130-400 K/uL Mean Platelet Volume 11.3 H 7.5-10.5 fL Immature Granulocyte % (Auto) 2.0 H 0-1 % Neutrophils (%) (Auto) 82.9 H 40.0-77.0 % Lymphocytes (%) (Auto) 12.3 L 21.0-51.0 % Monocytes (%) (Auto) 2.1 L 3.0-13.0 % Eosinophils (%) (Auto) 0.4 0.0-8.0 % Basophils (%) (Auto) 0.3 0.0-5.0 % Neutrophils # (Auto) 7.7 1.8-7.7 K/uL Lymphocytes # (Auto) 1.2 1.0-4.8 K/uL Monocytes # (Auto) 0.2 0.1-1.0 K/uL Eosinophils # (Auto) 0.04 0.00-0.70 K/uL Basophils # (Auto) 0.03 0.00-0.20 K/uL Absolute Immature Granulocyte (auto 0.19 0-1 K/uL Nucleated Red Blood Cells 0.0 0.0-0.19 % Erythrocyte Sedimentation Rate 43 H 0-30 MM/HR White Cell Morphology Comment See comments Chemistry Labs: Test 11/30/24 11:10 11/30/24 03:42 11/29/24 07:24 11/28/24 19:13 Range/Units Whole Blood Glucose 114 H 70-110 MG/DL Bedside Glucose Comment Notified Nurse Sodium Level 141 136-145 mmol/L Potassium Level 4.4 3.5-5.1 mmol/L Chloride Level 105 101-111 mmol/L Carbon Dioxide Level 31 21-32 mmol/L Blood Urea Nitrogen 26 H 7-18 mg/dL Creatinine 1.0 0.5-1.0 mg/dL Glomerular Filtration Rate Calc 61 >90 mL/min Random Glucose 147 H 70-105 mg/dL Total Calcium 8.9 8.5-10.1 mg/dL Total Creatine Kinase 19 #L 21-232 U/L C-Reactive Protein, Quantitative 2.90 0.5-3.0 mg/L Vitamin B12 Level 483 193-986 pg/mL Folic Acid (LAB) 6.70 2-20 ng/mL Thyroid Stimulating Hormone (TSH) 3.79 #H 0.36-3.74 uIU/mL Hemoglobin A1c 5.5 4.0-6.0 % Estimated Average Glucose (eAG) 111 70-126 mg/dL Triglycerides Level 161 30-200 mg/dL Cholesterol Level 189 # <200 mg/dL LDL Cholesterol 84 0-99 mg/dL HDL Cholesterol 77 35-85 mg/dL Troponin I High Sensitivity 9.0 4-50 ng/L DIAGNOSTICS / RADIOLOGY RESULTS: [ ] Signed PATIENT: SUSU GHOSH MR#: [id number] : 1955 SEX: F AGE: 69 LOCATION: [facility] ORDER 24 STATUS: ADM IN REPORT#: [id number] SERVICE 22 REASON: left sided paralysis ORDERING PHYSICIAN: OCHOA OJEDA CNP PROCEDURE: CAROTID - US CAROTID DUPLEX CAROTID ULTRASOUND CLINICAL INFORMATION:left sided paralysis Carotid bifurcations: There is mild calcified plaque at the bilateral carotid bifurcations. Vertebrals: Antegrade bilaterally RCCA: 47 cm/s LCCA: 43 cm/s ERICKA: 57 cm/s LICA: 61 cm/s Ratio: 1.2 Ratio: 1.4 IMPRESSION: Mild atherosclerotic vascular disease with no identified hemodynamically significant stenoses. DICTATED BY: BARTOLO ENG DO DATE: 11/29/242206 ELECTRONICALLY SIGNED BY: BARTOLO ENG DO DATE: 11/29/242212 PLAN Admit to PCCU with continuous cardiac monitoring. Neuro checks every 4 hours and as needed. [id number] mg p.o. daily. Atorvastatin 40 mg p.o. daily. Blood pressure checks every 4 hours and as needed. Monitor heart rate closely. Systolic blood pressure between 120 and 160 to maintain adequate brain perfusion. Keep NPO for now until passes dysphagia screen by nurse. Plan for MRI today. Pending echo complete with spectral +color Doppler. Consult Neurology in the morning left leg weakness, worsening from baseline and facial paresthesia. (ED did the initial consult to neurology on 11/28/2024. Who agrees to see the patient as consult) Consult cardiology in the morning for bradycardia heart rate as low as 36 bpm. Reconcile home medications once available. Glucometer checks a.c. and HS with insulin regular sliding scale per protocol. PT and OT evaluation and treat. A.m. labs. Monitor renal and liver function. Monitor electrolytes and treat accordingly. GI and DVT prophylaxis. NEURO: Minimize central acting medications as possible. Maintain fall precautions, adequate lighting during the day PULMONARY: Supplemental 02 as needed. Maintain aspiration precautions at all times CARDIOVASCULAR: Follow hemodynamics. Vital signs per facility protocol GI & NUTRITION: Continue with nutritional support. Continue stool softeners and laxatives as needed. KIDNEYS & ELECTROLYTES: Strict monitoring of intake, output and overall fluid balance. Avoid nephrotoxic medications to the extent possible. Medications to be dosed according to renal function. Monitor electrolytes and replace as needed ENDOCRINE: Maintain blood glucose between 100-180 at all times. Hypoglycemia protocol in place INFECTIOUS DISEASE: Trend temperature, WBC and procalcitonin level Follow cultures, deescalate antibiotics as soon as possible. Panculture if new onset fever ONCOLOGY/HEMATOLOGY/COAGULATION: Monitor for s/s of bleeding Monitor hemoglobin, coagulation studies as needed SKIN: Pressure ulcer prevention per facility protocol Specialty mattress ORTHO/REHAB: Continue PT/OT Prophylaxis: Continue GI and DVT prophylaxis Code Status: Full Resuscitation Disposition: AILEEN HEAD Nov 30, 2024 11:30
--- NOTE | 2024-11-30 12:30 | NUR ---
Eval attempted and spoke to SJ, patient's nurse. Patient out of room for MRI as stroke has not been ruled out. PT team to follow.
--- NOTE | 2024-11-30 12:48 | NUR ---
[facility] Consult: Patient with low jesus score, per primary nurse, patient with no open wounds. Addendum: 11/30/24 at 1249 by YUSUF ZUNIGA RN RN/ Amended: Links added.
[2024-11-30] MEDS: LORazepam 2 MG/ML 1 ML VIAL IVP ONE (14:00)
--- NOTE | 2024-11-30 16:31 | HMCIMG ---
MR SPINAL CANAL, CERV W/WO CON REASON: stenosis COMPARISON: None TECHNIQUE: Routine cervical imaging protocol was performed. Images are also obtained pre and post gadolinium contrast infusion, 20 cc Clariscan IV. FINDINGS: There is moderate disc interspace narrowing at C5-6 and C6-7. Remaining interspaces are preserved. Alignment is normal. There are no focal osseous lesions. Axial images show widely patent C2-3 interspace. C3-4 is widely patent as well. There is mild annular bulging at C3-5-6. AP diameter is mildly narrowed at between 7 and 8 mm. Foramina are moderately narrowed as well. C6-7 is better preserved, left foramen is narrow the right foramen is patent. Remaining interspaces are widely patent. Cervical cord and craniocervical junction appear normal. Surrounding soft tissues appear unremarkable. Postcontrast images are unremarkable, there are no focal masses, there is no abnormal contrast enhancement. IMPRESSION: 1. Moderate degenerative disc disease C5-6 and C6-7. 2. Some annular bulging at C5-6 results in mild spinal stenosis, AP diameter between 7 and 8 mm, there is also moderate bilateral foraminal narrowing. 3. Left-sided foraminal narrowing at C6-7, exam is otherwise unremarkable.
--- NOTE | 2024-11-30 16:36 | HMCIMG ---
MR BRAIN WWO CON REASON: Left lower leg paralysis, left facial numbness, rule out cva COMPARISON: There are no prior MRI scans available for comparison. TECHNIQUE: Routine cerebral imaging protocol was performed. Images are also obtained pre and post gadolinium contrast infusion. CONTRAST: 15 cc MultiHance 529 IV. FINDINGS: There is a 1 cm focal area of increased signal intensity on diffusion-weighted images, deep central white matter of the right parietal region, findings are consistent with an acute lacunar type stroke. The abnormal signal extends inferiorly into the external capsule region of the right basal ganglia. There is no mass effect. There is no evidence of hemorrhage. There are periventricular white matter changes of small vessel disease, mild in degree. There are no focal masses. There are no focal areas of abnormal contrast enhancement. Ventricles and sulci appear unremarkable. Posterior fossa and brainstem structures appear normal. There is no evidence of intracranial hemorrhage. Extracranial soft tissues appear unremarkable. IMPRESSION: 1. 1 cm focus of abnormal signal diffusion-weighted images right parietal deep central white matter, extending inferiorly into the basal ganglia, consistent with acute stroke. 2. No evidence of mass effect or hemorrhagic transformation. 3. Mild periventricular white matter changes of small vessel disease consistent with involutional change, there are no other acute findings.
--- NOTE | 2024-11-30 16:57 | HMCIMG ---
MR SPINAL CANAL, LUMB W/WO CON REASON: stenosis COMPARISON: None TECHNIQUE: Routine lumbar imaging protocol was performed. Images were also obtained pre and postcontrast, 12 cc Clariscan total IV for the MRI thoracic, cervical and lumbar spine. FINDINGS: There are normal appearing vertebral bodies. There is mild interspace narrowing at L4-5, remaining interspaces are well preserved. There are no focal osseous lesions. Neural foramina are widely patent. Axial images show a widely patent spinal canal and thecal sac. There are mild degenerative changes in the facets but no evidence of stenosis. There are no focal disc herniations. Postcontrast images show unremarkable findings, no abnormal contrast enhancement, no evidence of focal mass. IMPRESSION: 1. Mild lumbar degenerative changes with no evidence of disc herniation or focal spinal stenosis.
--- NOTE | 2024-11-30 16:59 | HMCIMG ---
MR SPINAL CANAL, THORACIC WWO REASON: Stenosis COMPARISON: None TECHNIQUE: Routine thoracic imaging protocol was performed. Images were also obtained pre and post gadolinium contrast infusion, 12 cc Clariscan IV total for the MRI cervical, thoracic and lumbar spine. FINDINGS: There are normal-appearing thoracic vertebral bodies. Interspace heights are preserved. Alignment is normal. There are no compression fractures. Spinal canal is widely patent. The thoracic cord appears unremarkable. There is no evidence of cord compression or focal disc herniation. Contrast images are unremarkable, there are are no focal masses, there is no abnormal contrast enhancement. IMPRESSION: 1. Normal pre and postcontrast MRI thoracic spine.
--- NOTE | 2024-11-30 17:10 | NUR ---
CALLED DR. PADILLA ON HIS CELL PHONE AND ADVISED OF THE CONSULT. HAD CALLED DR. PADILLA EARLIER THROUGH ANSWERING SERVICE AND NO RESPONSE. DR. DOE HAD SEEN PT EARLIER AND ADVISED NURSING STAFF THAT THE PATIENT WAS DR. PADILLA'S PATIENT AND TO PLEASE CONTACT HIM OF THE CONSULT.
[2024-12-01] VITALS (9 sets, daily range): BP systolic 151–188; BP diastolic 67–101; PULSE 54–92; RESP 18–20; TEMP 98–98.9; O2SAT 98–100
[2024-12-01] MEDS: trAZOdone HCL 50 MG TAB PO PRN (01:42)
[2024-12-01 04:06] LABS: BASOPHILS # (AUTO) 0.03 K/uL (0.00-0.20); BASOPHILS % (AUTO) 0.2 % (0.0-5.0); EOSINOPHILS # (AUTO) 0.03 K/uL (0.00-0.70); EOSINOPHILS % (AUTO) 0.2 % (0.0-8.0); HEMATOCRIT 40.2 % (36-48); IMMATURE GRANULOCYTE ABSOLUTE 0.21 K/uL (0-1); LYMPHOCYTES # (AUTO) 1.1 K/uL (1.0-4.8); LYMPHOCYTES % (AUTO) 6.5 % (21.0-51.0); MEAN CORPUSCULAR HEMOGLOBIN 29.6 pg (27.0-33.0); MEAN CORPUSCULAR HGB CONC 32.1 g/dL (32.0-36.0); MEAN CORPUSCULAR VOLUME 92.2 fL (79-99); MONOCYTES # (AUTO) 0.4 K/uL (0.1-1.0); MONOCYTES % (AUTO) 2.3 % (3.0-13.0); NEUTROPHILS # (AUTO) 15.1 K/uL (1.8-7.7); NEUTROPHILS % (AUTO) 89.6 % (40.0-77.0); PLATELET COUNT (AUTO) 200 K/uL (130-400); RED BLOOD CELL COUNT(AUTO) 4.36 MIL/uL (4.00-5.50); WHITE BLOOD COUNT (AUTO) 16.9 K/uL (4.8-10.8)
[2024-12-01 04:30] LABS: ALBUMIN 2.6 g/dL (3.5-5.0); BILIRUBIN,TOTAL 0.5 mg/dL (0.2-1.0); CREATININE 0.9 mg/dL (0.5-1.0); PHOSPHORUS 3.4 mg/dL (2.5-4.9); POTASSIUM 4.4 mmol/L (3.5-5.1); TOTAL PROTEIN, SERUM 6.6 g/dL (6.0-8.3)
[2024-12-01 09:10] LABS: ANTI-SCLERODERMA 70 <0.2 AI (0.0-0.9)
--- NOTE | 2024-12-01 12:23 | PN ---
[facility] PROGRESS NOTE Date Patient Seen: Dec 01, 2024 Time of Visit: 12:23 Supervising Physician: Alber Guzman MD Primary Care Physician: SHAISTA SCHUSTER MD, Dr. Outpatient Specialists: Dr. Shanelle Mast, neurology in [place], [place] Dr. Kaylah Perez, rheumatology Inpatient Consults: Dr. 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 Chronic problem list: Autoimmune neuropathy, Hypertension, hypothyroidism, hypokalemia, abnormal weight loss, leukocytosis, debility/frailty/weakness INTERVAL HISTORY: HPI: Mrs Ghosh is a 69-year-old female significant medical history of chronic debility with left arm weakness who [place] [facility] [place] evaluation of left facial numbness and weakness. Patient the patient reports chronically having issues with mobility and movement over the last several months. Patient has been treated for autoimmune nephropathy. Patient states she was at her baseline health earlier today when at 4:30 p.m. she started feeling numbness on her left face then she started with increased left leg mobility which prompted her ED visit. The patient reports that at baseline she is able to walk with a walker. She states that today she could not lift her leg out of the bed. She reports that she was recently discharged from [facility] for therapy due to her insurance not covering. She reports that she was only one week at home and now with this weakness she is back at the hospital. She reports that her photographer apprentice lithographic Dr. Mast and other physicians can tell her what is wrong with her. She reports that ER physician informed her that he spoke to Dr. Thurston, neurologist [place] [facility] and that the plan is to MRI the head and all her spine. She reports that she agreed with this because she wants an answered to her problem. ED physician requested patient be admitted with the diagnosis of peripheral neuropathy. Interval history 11/29 patient is awake and oriented x3 no event overnight. Patient stated that her left-side motor function remains weak. Patient has left upper arm paralysis but was able to move bilateral lower extremity. This times is unable to do that. We will obtain MRI of the brain. Otherwise we will obtain lab in the morning. We will obtain recommendation from Neurology. Home medications. 11/30- patient is awake alert and oriented x3. She continues with generalized body weakness with increased weakness to left side. Otherwise no major overnight events. Patient is in no apparent distress. He is hemodynamically stable and afebrile. CBC unremarkable similar to yesterday with neutrophils trending down 82.9 today. ESR is 43 elevated. Chemistry is unremarkable creatinine is 1.0 GFR of 61 slightly decreased from yesterday. TSH is 3.79. Patient continues on her levothyroxine. Patient is pending MRI of the brain, thoracic, lumbar and cervical spine. Carotid ultrasound shows mild arteriosclerotic vascular disease with no identified hemodynamically significant stenosis. 12/01/23-patient is awake alert and oriented x3. She has no major complaints. other than her initial symptoms of weakness. She reporst feeling slightly better and has started to work with PT. Brain MRI shows 1 cm focus of abnormal signal diffusion weighted images to the right. Or deep central white matter extending inferiorly into the basal ganglia consensus seen with the acute stroke. On MRI of spinal lumbar 10 hours shows mild lumbar degenerative changes with no evidence of disc herniation or focal spinal stenosis. She is pending a CTA of the head and neck per neurology recommendation. Suspecting vasculitis. 2D echo shows negative bubble study. No evidence of PFO/ASD agitated saline LVEF is 50-55% with stage I diastolic dysfunction no pericardial effusion. No valvular pathology. On laboratory ESR is 43, SUSU positive. WBCs 16.9 likely from starting prednisone no fevers T-max 99 in the last 24 hours. She has been slightly hypotensive systolic blood pressure between 153-180. We will slowly bring this down. D-dimer is negative. We will continue to appreciate neurology recommendations with the plans for IR to do a lumbar puncture. REVIEW OF SYSTEMS: 12 point ROS reviewed with patient. Pertinent positives mentioned above. Otherwise negative. PHYSICAL EXAM: GENERAL: Alert, weak, awake oriented x 4, cachectic HEENT: EOMI, Sclera non icteric, moist mucosa NECK: Supple, no JVD, trachea midline LUNGS: Clear breath sounds bilaterally. No wheezes HEART: Regular rate and rhythm. Normal S1 and S2, without murmurs ABD: Abdomen soft, nontender. Bowel sounds present EXT: No clubbing cyanosis or edema. NEURO: Alert and oriented X4, follows commands. Unable to lifts the left leg off of the bed. She is able to move it slightly. She asked me if she was able to move the leg off of the bed. Her left arm is totally flaccid and contracted she reports that her left arm is at baseline. Legs are very thin, muscle loss (cachetic). Vital Signs (last 8hr) Date Time Temp Pulse Resp B/P (MAP) Pulse Ox O2 Delivery O2 Flow Rate FiO2 12/01/24 11:00 98.1 92 20 153/100 94 Room Air 12/01/24 07:35 100 Room Air* 0 21 12/01/24 07:00 99.0 55 20 181/101 96 Room Air 12/01/24 04:35 98.1 60 18 163/72 97 Room Air LABS: Hematology Labs: Test 12/01/24 03:50 11/30/24 03:42 Range/Units White Blood Count 16.9 H 4.8-10.8 K/uL Red Blood Count 4.36 4.00-5.50 MIL/uL Hemoglobin 12.9 12.0-16.0 g/dL Hematocrit 40.2 36-48 % Mean Corpuscular Volume 92.2 79-99 fL Mean Corpuscular Hemoglobin 29.6 27.0-33.0 pg Mean Corpuscular Hemoglobin Concent 32.1 32.0-36.0 g/dL Red Cell Distribution Width 17.0 H 11.0-15.5 % Platelet Count 200 130-400 K/uL Mean Platelet Volume 11.3 H 7.5-10.5 fL Immature Granulocyte % (Auto) 1.2 H 0-1 % Neutrophils (%) (Auto) 89.6 H 40.0-77.0 % Lymphocytes (%) (Auto) 6.5 L 21.0-51.0 % Monocytes (%) (Auto) 2.3 L 3.0-13.0 % Eosinophils (%) (Auto) 0.2 0.0-8.0 % Basophils (%) (Auto) 0.2 0.0-5.0 % Neutrophils # (Auto) 15.1 H 1.8-7.7 K/uL Lymphocytes # (Auto) 1.1 1.0-4.8 K/uL Monocytes # (Auto) 0.4 0.1-1.0 K/uL Eosinophils # (Auto) 0.03 0.00-0.70 K/uL Basophils # (Auto) 0.03 0.00-0.20 K/uL Absolute Immature Granulocyte (auto 0.21 0-1 K/uL Nucleated Red Blood Cells 0.0 0.0-0.19 % Erythrocyte Sedimentation Rate 43 H 0-30 MM/HR Chemistry Labs: Test 12/01/24 11:06 12/01/24 03:50 11/30/24 03:42 Range/Units Whole Blood Glucose 245 H 70-110 MG/DL Bedside Glucose Comment Notified Nurse Sodium Level 139 136-145 mmol/L Potassium Level 4.4 3.5-5.1 mmol/L Chloride Level 103 101-111 mmol/L Carbon Dioxide Level 30 21-32 mmol/L Blood Urea Nitrogen 30 H 7-18 mg/dL Creatinine 0.9 0.5-1.0 mg/dL Glomerular Filtration Rate Calc 69 >90 mL/min Random Glucose 152 H 70-105 mg/dL Total Calcium 9.2 8.5-10.1 mg/dL Phosphorus Level 3.4 2.5-4.9 mg/dL Magnesium Level 2.00 1.80-2.40 mg/dL Total Bilirubin 0.5 0.2-1.0 mg/dL Aspartate Amino Transf (AST/SGOT) 15 10-37 U/L Alanine Aminotransferase (ALT/SGPT) 16 12-78 U/L Alkaline Phosphatase 88 50-136 U/L Total Protein 6.6 6.0-8.3 g/dL Albumin 2.6 L 3.5-5.0 g/dL Total Creatine Kinase 19 #L 21-232 U/L C-Reactive Protein, Quantitative 2.90 0.5-3.0 mg/L Vitamin B12 Level 483 193-986 pg/mL Folic Acid (LAB) 6.70 2-20 ng/mL Thyroid Stimulating Hormone (TSH) 3.79 #H 0.36-3.74 uIU/mL DIAGNOSTICS / RADIOLOGY RESULTS: [ ][address] [id number] IMAGING REPORT Signed PATIENT: SUSU GHOSH MR#: [id number] : 1955 SEX: F AGE: 69 LOCATION: 2DH ORDER 58 STATUS: ADM IN REPORT#: [id number] SERVICE 57 REASON: cva. please add bubble study ORDERING PHYSICIAN: AILEEN SHETH PROCEDURE: ECHO CMP - ECHO 2-D COMPLETE APPROVED REPORT EXAM: Two-dimensional and M-mode echocardiogram with Doppler and color Doppler. INDICATION ICD: Cerebral vascular attack Contrast Details Indication: Rule out PFO Agent/Amount Used: Agitated Saline 2D Dimensions RVDd 3.8 cm LVEF(%) 55.1 (>50%) LVED Vol(simp.) 52.5 mL IVSd 0.9 (0.7-1.1cm) FS(%) 28 % LVES Vol(simp.) 23.6 mL LVDd 3.9 (3.8-5.6cm) LA (2D) 2.7 (1.6-4.0cm) LVEF(%, simp.) 55 % PWd 0.8 (0.7-1.1cm) Ao Root(2D) 3.0 (2.0-3.7cm) LA ESV INDEX (4CH) 15 .30 mL/m2 IVSs 1.2 cm LVOT diam 1.8 (1.8-2.4cm) LA ESV INDEX (2CH) 9.60 mL/m2 LVDs 2.8 (2.5-4.0cm) LA ESV INDEX (BP) 12.90 mL/m2 PWs 1.4 cm M-Mode Dimensions EPSS 0.8 cm LA (MM) 2.9 (1.6-4.0cm) Ao Root(MM) 3.0 (2.0-3.7cm) Aortic Valve AoV VTI 0.2 m Ao Mean GR 2.0 mmHg LVOT VTI 0.12 m ELYSIA (VMAX) 1.5 cm2 ELYSIA (VTI) 1.5 cm2 Mitral Valve MV E Vmax 31.5 cm/s DECEL Time 127 ms MV A Vmax 67.4 cm/s P 1/2 T 43 ms E/A ratio 0.5 MVA (PHT) 5.1 cm2 TDI E/E' Medial 8.5 E/E' Lateral 7.5 Medial E' Peak V 3.70 cm/s Lateral E' Peak V 4.20 cm/s Pulmonary Valve PV VTI 0.19 m PV Mean GR 4 mmHg Tricuspid Valve RAP (EST) 3 mmHg RVSP 3.0 mmHg Left Ventricle The left ventricle is normal size. There is akinesis to dyskinesis of the posterobase and basal inferoseptum. There is normal left ventricular wall thickness. LVEF is 50-55%. Stage I diastolic dysfunction. Right Ventricle The right ventricle is normal size. The right ventricular systolic function is normal. Atria The left atrium size is normal. Negative bubble study. No evidence of PFO/ASD by agitated saline. The right atrium size is normal. Aortic Valve The aortic valve is normal in structure. No aortic regurgitation is present. There is no aortic valvular stenosis. Mitral Valve Mitral valve leaflets open well. There is no mitral valve regurgitation noted. There is no mitral valve stenosis. Tricuspid Valve The tricuspid valve is normal in structure. There is no tricuspid valve regurgitation noted. Pulmonic Valve The pulmonary valve is normal in structure. There is no pulmonic valvular regurgitation. Great Vessels The aortic root is normal in size. The IVC is normal in size and collapses >50% with inspiration. Pericardium There is no pericardial effusion. Other Information Quality : Technically difficult study due to body habitus Conclusion Negative bubble study. No evidence of PFO/ASD by agitated saline. The left ventricle is normal size. There is normal left ventricular wall thickness. There is akinesis to dyskinesis of the posterobase and basal inferoseptum. LVEF is 50-55%. Stage I diastolic dysfunction. The aortic valve is normal in structure. There is no mitral valve regurgitation noted. There is no pericardial effusion. DICTATED BY: BRUNA AGARWAL MD DATE: 12/01/24 5672 ELECTRONICALLY SIGNED BY: BRUNA AGARWAL MD DATE: 12/01/24 0251 PLAN Tele monitoring Neuro checks every 4 hours and as needed. [id number] mg p.o. daily. Atorvastatin 40 mg p.o. daily. Systolic blood pressure between 120 and 160 to maintain adequate brain pe rfusion. Per neurology recs pending IR lumbar puncture. Reconcile home medications once available. Glucometer checks a.c. and HS with insulin regular sliding scale per protocol. PT and OT evaluation and treat. A.m. labs. Monitor renal and liver function. Monitor electrolytes and treat accordingly. pending autoimmune labs chest XR in am pt started on steroids prednisone 20mg po BID GI and DVT prophylaxis. NEURO: Minimize central acting medications as possible. Maintain fall precautions, adequate lighting during the day PULMONARY: Supplemental 02 as needed. Maintain aspiration precautions at all times CARDIOVASCULAR: Follow hemodynamics. Vital signs per facility protocol GI & NUTRITION: Continue with nutritional support. Continue stool softeners and laxatives as needed. KIDNEYS & ELECTROLYTES: Strict monitoring of intake, output and overall fluid balance. Avoid nephrotoxic medications to the extent possible. Medications to be dosed according to renal function. Monitor electrolytes and replace as needed ENDOCRINE: Maintain blood glucose between 100-180 at all times. Hypoglycemia protocol in place INFECTIOUS DISEASE: Trend temperature, WBC and procalcitonin level Follow cultures, deescalate antibiotics as soon as possible. Panculture if new onset fever ONCOLOGY/HEMATOLOGY/COAGULATION: Monitor for s/s of bleeding Monitor hemoglobin, coagulation studies as needed SKIN: Pressure ulcer prevention per facility protocol Specialty mattress ORTHO/REHAB: Continue PT/OT Prophylaxis: Continue GI and DVT prophylaxis Code Status: Full Resuscitation Disposition: AILEEN HEAD Dec 01, 2024 12:23
[2024-12-01] MEDS ORDERED: IOHEXOL 350 MG/ML 100ML INFUS..BTL IV ONE (15:47)
--- NOTE | 2024-12-01 15:53 | PN ---
PROGRESS NOTE Date of Service: Dec 01, 2024 Time of Service: 15:40 SUBJECTIVE: The patient has a right-sided anterior choroidal artery stroke observed in the MRI. Continues having left-sided weakness. No new neurological deficits have been observed. Laboratory workup demonstrated a positive ESR and SUSU. CK was normal. Cervical thoracic and MRI demonstrated cervical spondylosis with no myelopathy. REVIEW OF SYSTEMS CONSTITUTIONAL: Positive for fatigue. HEAD/FACE: No signs of trauma. EENT: Denies eye pain, blurred vision, double vision, or light sensitivity. RESPIRATORY: Denies shortness of breath, cough, wheezing CARDIOVASCULAR: Denies chest pain, palpitation, syncope GASTROINTESTINAL/ABDOMINAL: Denies abdominal pain, constipation, diarrhea, nausea or vomiting GENITOURINARY: Denies dysuria or hematuria. MUSCULOSKELETAL: Denies joint pain, tenderness, or trauma. INTEGUMENTARY: Denies rash or itchiness NEUROLOGICAL/PSYCH: Bilateral lower extremities weakness PHYSICAL EXAM Mental status: The patient is alert, attentive, and oriented. Speech is clear and fluent with good repetition, comprehension, and naming. Pt recalls 3/3 objects at 5 minutes. Cranial nerves: CN II: Visual wynne are full to confrontation. CN III, IV, : At primary gaze, there is no eye deviation. CN V: Facial sensation is intact to pinprick in all 3 divisions bilaterally. Corneal responses are intact. CN VII: Face is symmetric with normal eye closure and smile. CN VIII: Hearing is normal to rubbing fingers CN IX, X: Palate elevates symmetrically. Phonation is normal. CN XI: Head turning and shoulder shrug are intact CN XII: Tongue is midline with normal movements and no atrophy. Motor: Severe weakness in bilateral upper or lower extremities with hemiplegia in the left upper and lower extremities. The patient has severe muscle atrophy in bilateral upper and lower extremities Reflexes: Reflexes are 0+ and symmetric at the biceps, triceps, knees, and ankles. Plantar responses are flexor. Sensory: Light touch, pinprick, position sense, and vibration sense are intact in fingers and toes. Coordination: Difficulty with rapid alternating movements of to weakness Gait/Stance: Not evaluated Vital Signs (last 8hr) Date Time Temp Pulse Resp B/P (MAP) Pulse Ox O2 Delivery O2 Flow Rate FiO2 12/01/24 11:00 98.1 92 20 153/100 94 Room Air LABS: Laboratory: Test 12/01/24 11:06 12/01/24 03:50 11/30/24 07:07 11/30/24 03:42 Range/Units Whole Blood Glucose 245 H 70-110 MG/DL Bedside Glucose Comment Notified Nurse White Blood Count 16.9 H 4.8-10.8 K/uL Red Blood Count 4.36 4.00-5.50 MIL/uL Hemoglobin 12.9 12.0-16.0 g/dL Hematocrit 40.2 36-48 % Mean Corpuscular Volume 92.2 79-99 fL Mean Corpuscular Hemoglobin 29.6 27.0-33.0 pg Mean Corpuscular Hemoglobin Concent 32.1 32.0-36.0 g/dL Red Cell Distribution Width 17.0 H 11.0-15.5 % Platelet Count 200 130-400 K/uL Mean Platelet Volume 11.3 H 7.5-10.5 fL Immature Granulocyte % (Auto) 1.2 H 0-1 % Neutrophils (%) (Auto) 89.6 H 40.0-77.0 % Lymphocytes (%) (Auto) 6.5 L 21.0-51.0 % Monocytes (%) (Auto) 2.3 L 3.0-13.0 % Eosinophils (%) (Auto) 0.2 0.0-8.0 % Basophils (%) (Auto) 0.2 0.0-5.0 % Neutrophils # (Auto) 15.1 H 1.8-7.7 K/uL Lymphocytes # (Auto) 1.1 1.0-4.8 K/uL Monocytes # (Auto) 0.4 0.1-1.0 K/uL Eosinophils # (Auto) 0.03 0.00-0.70 K/uL Basophils # (Auto) 0.03 0.00-0.20 K/uL Absolute Immature Granulocyte (auto 0.21 0-1 K/uL Nucleated Red Blood Cells 0.0 0.0-0.19 % Sodium Level 139 136-145 mmol/L Potassium Level 4.4 3.5-5.1 mmol/L Chloride Level 103 101-111 mmol/L Carbon Dioxide Level 30 21-32 mmol/L Blood Urea Nitrogen 30 H 7-18 mg/dL Creatinine 0.9 0.5-1.0 mg/dL Glomerular Filtration Rate Calc 69 >90 mL/min Random Glucose 152 H 70-105 mg/dL Total Calcium 9.2 8.5-10.1 mg/dL Phosphorus Level 3.4 2.5-4.9 mg/dL Magnesium Level 2.00 1.80-2.40 mg/dL Total Bilirubin 0.5 0.2-1.0 mg/dL Aspartate Amino Transf (AST/SGOT) 15 10-37 U/L Alanine Aminotransferase (ALT/SGPT) 16 12-78 U/L Alkaline Phosphatase 88 50-136 U/L Total Protein 6.6 6.0-8.3 g/dL Albumin 2.6 L 3.5-5.0 g/dL Anti-Nuclear Antibody Screen Positive H Negative Anti-Nuclear Antibody Interpret Comment . ELLIOTT-1 Antibody <0.2 0.0-0.9 AI SS-A/Ro Antibody 0.5 0.0-0.9 AI SS-B/La Antibody <0.2 0.0-0.9 AI Sm (Harrington) IgG Antibody, Quant <0.2 0.0-0.9 AI MAGAZINE KEEPER IgG Antibody, Quantitative 0.9 0.0-0.9 AI Scl-70 (Scleroderma) Antibody <0.2 0.0-0.9 AI Anti-Double Strand DNA Antibody 1 0-9 IU/mL Chromatin Antibody 1.1 H 0.0-0.9 AI Anti-Centromere IgG Antibody <0.2 0.0-0.9 AI Erythrocyte Sedimentation Rate 43 H 0-30 MM/HR Total Creatine Kinase 19 #L 21-232 U/L C-Reactive Protein, Quantitative 2.90 0.5-3.0 mg/L Vitamin B12 Level 483 193-986 pg/mL Folic Acid (LAB) 6.70 2-20 ng/mL Thyroid Stimulating Hormone (TSH) 3.79 #H 0.36-3.74 uIU/mL DIAGNOSTICS / RADIOLOGY: CT scan of the head without contrast: Cortical atrophy ASSESSMENT / PLAN: 1).- Right anterior choroidal artery stroke - possible causes include small- vessel disease versus embolic. The patient has a positive SUSU request and Sed rate. Request a D-dimer. Other possible diagnosis includes vasculitis and for that reason we will request a CTA head and neck w/wo contrast. The CTA suggestive of vasculitis the patient will benefit from cerebral angiography to confirm diagnosis. Now the patient is on steroids prednisone 20 mg p.o. b.i.d. HbA1c 5.5%, LDL 86. Continue ASA 81mg po day and atorvastatin 40mg po day. 2).- Chronic polyneuropathy - based on the patient's history and physical examination it is likely this patient has a progressive neurodegenerative chronic polyneuropathy with possible diagnosis including CIDP. Positive sed rete and SUSU. CK normal. MRI cervical spine with mild cervical and lumbar degeneration not likely the cause of her major symptomatology. The pt will benefit from a lumbar puncture to evaluate for possible CIDP. Obtain more information from Dr. Yun in regards of the reason diagnosis of autoimmune disorder. Request PT/OT prior to discharge 3).- Cervical and lumbar spondylosis - cervical mild to moderate not severe to be the major cause of her symptomatology. Continue close observation and follow PT/OT/ST consultation. Thank you for your consultation JERRY YBARRA MD Dec 01, 2024 15:53
--- NOTE | 2024-12-01 16:20 | NUR ---
PT WAS TAKEN TO CT SCAN AND WAS MOVED TO ROOM 204 DUE TO ROOM NEEDING MAINTENANCE.
--- NOTE | 2024-12-01 16:30 | HMCSR ---
APPROVED REPORT EXAM: Two-dimensional and M-mode echocardiogram with Doppler and color Doppler. INDICATION ICD: Cerebral vascular attack Contrast Details Indication: Rule out PFO Agent/Amount Used: Agitated Saline 2D Dimensions RVDd3.8 cmLVEF(%)55.1 (>50%)LVED Vol(simp.)52.5 mL IVSd0.9 (0.7-1.1cm)FS(%)28 %LVES Vol(simp.)23.6 mL LVDd3.9 (3.8-5.6cm)LA (2D)2.7 (1.6-4.0cm)LVEF(%, simp.)55 % PWd0.8 (0.7-1.1cm)Ao Root(2D)3.0 (2.0-3.7cm)LA ESV INDEX (4CH)15.30 mL/m2 IVSs1.2 cmLVOT diam1.8 (1.8-2.4cm)LA ESV INDEX (2CH)9.60 mL/m2 LVDs2.8 (2.5-4.0cm)LA ESV INDEX (BP)12.90 mL/m2 PWs1.4 cm M-Mode Dimensions EPSS0.8 cm LA (MM)2.9 (1.6-4.0cm) Ao Root(MM)3.0 (2.0-3.7cm) Aortic Valve AoV VTI0.2 mAo Mean GR2.0 mmHgLVOT VTI0.12 m ELYSIA (VMAX)1.5 cm2AVA (VTI) 1.5 cm2 Mitral Valve MV E Vmax31.5 cm/sDECEL Akdr845 ms MV A Vmax67.4 cm/sP 1/2 T43 ms E/A ratio0.5MVA (PHT)5.1 cm2 TDI E/E' Medial8.5E/E' Lateral7.5 Medial E' Peak V3.70 cm/sLateral E' Peak V4.20 cm/s Pulmonary Valve PV VTI0.19 mPV Mean GR4 mmHg Tricuspid Valve RAP (EST) 3 mmHgRVSP3.0 mmHg Left Ventricle The left ventricle is normal size. There is akinesis to dyskinesis of the posterobase and basal infer oseptum. There is normal left ventricular wall thickness. LVEF is 50-55%. Stage I diastolic dysfuncti on. Right Ventricle The right ventricle is normal size. The right ventricular systolic function is normal. Atria The left atrium size is normal. Negative bubble study. No evidence of PFO/ASD by agitated saline. The right atrium size is normal. Aortic Valve The aortic valve is normal in structure. No aortic regurgitation is present. There is no aortic valvu lar stenosis. Mitral Valve Mitral valve leaflets open well. There is no mitral valve regurgitation noted. There is no mitral inés ve stenosis. Tricuspid Valve The tricuspid valve is normal in structure. There is no tricuspid valve regurgitation noted. Pulmonic Valve The pulmonary valve is normal in structure. There is no pulmonic valvular regurgitation. Great Vessels The aortic root is normal in size. The IVC is normal in size and collapses >50% with inspiration. Pericardium There is no pericardial effusion. Other Information Quality : Technically difficult study due to body habitus Conclusion Negative bubble study. No evidence of PFO/ASD by agitated saline. The left ventricle is normal size. There is normal left ventricular wall thickness. There is akinesis to dyskinesis of the posterobase and basal inferoseptum. LVEF is 50-55%. Stage I diastolic dysfunction. The aortic valve is normal in structure. There is no mitral valve regurgitation noted. There is no pericardial effusion.
--- NOTE | 2024-12-01 21:33 | HMCIMG ---
CT ANGIO HEAD AND NECK REASON: CVA ASSESS FOR VASCILITIS TECHNIQUE: Images were obtained from thoracic inlet through the vertex of the skull before and after bolus IV infusion of 100 ml of Omnipaque 350. 2D and 3D multiplanar reconstruction images were obtained in the head and neck. CT was performed with one or more of the following dose reduction techniques: automated exposure control, adjustment of the mA and/or kV according to patient size, or use of iterative reconstruction technique FINDINGS: Post contrast images in the neck show normal-appearing common and internal carotid arteries. Bifurcations appear unremarkable. There is no evidence of atherosclerotic change or focal narrowing. Images in the brain demonstrate normal-appearing internal carotid arteries. Anterior, middle and posterior cerebral arteries appear normal. Posterior fossa vessels are unremarkable as well. There is no evidence of aneurysm or AVM. There is no evidence of focal vessel occlusion. IMPRESSION: Normal CT angiography of the head and neck. Recommend MRI to evaluate for vasculitis.
[2024-12-02] VITALS (8 sets, daily range): BP systolic 147–164; BP diastolic 77–86; PULSE 51–68; RESP 16–20; TEMP 97.9–98.2; O2SAT 98–99
[2024-12-02 04:46] LABS: BASOPHILS # (AUTO) 0.04 K/uL (0.00-0.20); BASOPHILS % (AUTO) 0.2 % (0.0-5.0); EOSINOPHILS # (AUTO) 0.13 K/uL (0.00-0.70); EOSINOPHILS % (AUTO) 0.6 % (0.0-8.0); LYMPHOCYTES # (AUTO) 1.1 K/uL (1.0-4.8); LYMPHOCYTES % (AUTO) 5.2 % (21.0-51.0); MEAN CORPUSCULAR HEMOGLOBIN 29.5 pg (27.0-33.0); MEAN CORPUSCULAR HGB CONC 31.8 g/dL (32.0-36.0); MEAN CORPUSCULAR VOLUME 92.7 fL (79-99); MONOCYTES # (AUTO) 0.6 K/uL (0.1-1.0); MONOCYTES % (AUTO) 2.9 % (3.0-13.0); NEUTROPHILS # (AUTO) 18.5 K/uL (1.8-7.7); NEUTROPHILS % (AUTO) 90.1 % (40.0-77.0); PLATELET COUNT (AUTO) 221 K/uL (130-400); RED CELL DISTRIBUTION WIDTH 16.9 % (11.0-15.5); WHITE BLOOD COUNT (AUTO) 20.5 K/uL (4.8-10.8)
[2024-12-02 05:14] LABS: ALBUMIN 2.4 g/dL (3.5-5.0); BILIRUBIN,TOTAL 0.4 mg/dL (0.2-1.0); CREATININE 0.7 mg/dL (0.5-1.0); MAGNESIUM 1.7 mg/dL (1.80-2.40); PHOSPHORUS 3.4 mg/dL (2.5-4.9)
[2024-12-02] MEDS: levoTHYROxine 112 MCG TABLET PO SCH (07:08)
--- NOTE | 2024-12-02 07:19 | NUR ---
page made to benchmark to report mg level of 1.7. spoke to tripp oliveros, ordered mg 2gm iv protocol.
[2024-12-02] MEDS: MAGNESIUM 2GM PREMIX 50ML 50 ML IV PRN (07:30)
--- NOTE | 2024-12-02 08:08 | NUR ---
LUMBAR PUNCTURE CANCELLED PER DR Amy CADET LUMBAR PUNCTURE MUST BE ATTEMPTED FIRST BY ORDERING PHYSICIAN AND FAILED. CAN REORDER EXAM IF UNSUCCESSFUL. FISH KIMBALL NOTIFIED OF CANCELLATION.
--- NOTE | 2024-12-02 09:08 | HMCIMG ---
CHEST 1VW REASON: leukocytosis assess for pneumonia, COMPARISON: 11/28/2024 FINDINGS: Single view of the chest was obtained. Lungs are clear. Heart size is normal. There is no pulmonary vascular congestion. Mediastinum and bony thorax appear unremarkable. IMPRESSION: 1. Normal single view chest x-ray.
--- NOTE | 2024-12-02 09:28 | EKG ---
[facility] Test Date: 2024-12-02 Test Time: 09:17:46 Pat Name: SUSU CANO Department: [facility] Room: 204 1 Gender: F [employer] Specialist: [id number] : 1955 Requested By: AILEEN SHETH Order Number: [id number] Reading MD: Vitaliy Gary Measurements Intervals [place] Rate: 61 P: -27 VT: 144 QRS: -29 QRSD: 90 T: 15 QT: 454 QTc: 457 Interpretive Statements Normal sinus rhythm Moderate voltage criteria for LVH, may be normal variant Nonspecific ST and T wave abnormality Compared to ECG 11/29/2024 06:18:47 Left ventricular hypertrophy now present ST (T wave) deviation now present Sinus bradycardia no longer present Electronically Signed On 12-03-2024 12:17:57 QUALITY AUDIT REPRESENTATIVE by Vitaliy Gary Please click the below link to view image of tracing.
--- NOTE | 2024-12-02 11:07 | PN ---
[facility] PROGRESS NOTE Date Patient Seen: Dec 02, 2024 Time of Visit: 11:07 Supervising Physician: Alber Guzman MD Primary Care Physician: SHAISTA SCHUSTER MD, Dr. Outpatient Specialists: Dr. Shanelle Msat, neurology in [place], [place] Dr. Kaylah Perez, rheumatology Inpatient Consults: Dr. 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 Chronic problem list: Autoimmune neuropathy, Hypertension, hypothyroidism, hypokalemia, abnormal weight loss, leukocytosis, debility/frailty/weakness INTERVAL HISTORY: HPI: Mrs Ghosh is a 69-year-old female significant medical history of chronic debility with left arm weakness who presented to [facility] ED for evaluation of left facial numbness and weakness. Patient the patient reports chronically having issues with mobility and movement over the last several months. Patient has been treated for autoimmune nephropathy. Patient states she was at her baseline health earlier today when at 4:30 p.m. she started feeling numbness on her left face then she started with increased left leg mobility which prompted her ED visit. The patient reports that at baseline she is able to walk with a walker. She states that today she could not lift her leg out of the bed. She reports that she was recently discharged from [facility] for therapy due to her insurance not covering. She reports that she was only one week at home and now with this weakness she is back at the hospital. She reports that her client care coordinator Dr. Mast and other physicians can tell her what is wrong with her. She reports that ER physician informed her that he spoke to Dr. Thurston, neurologist here at [facility] and that the plan is to MRI the head and all her spine. She reports that she agreed with this because she wants an answered to her problem. ED physician requested patient be admitted with the diagnosis of peripheral neuropathy. Interval history 11/29 patient is awake and oriented x3 no event overnight. Patient stated that her left-side motor function remains weak. Patient has left upper arm paralysis but was able to move bilateral lower extremity. This times is unable to do that. We will obtain MRI of the brain. Otherwise we will obtain lab in the morning. We will obtain recommendation from Neurology. Home medications. 11/30- patient is awake alert and oriented x3. She continues with generalized body weakness with increased weakness to left side. Otherwise no major overnight events. Patient is in no apparent distress. He is hemodynamically stable and afebrile. CBC unremarkable similar to yesterday with neutrophils trending down 82.9 today. ESR is 43 elevated. Chemistry is unremarkable creatinine is 1.0 GFR of 61 slightly decreased from yesterday. TSH is 3.79. Patient continues on her levothyroxine. Patient is pending MRI of the brain, thoracic, lumbar and cervical spine. Carotid ultrasound shows mild arteriosclerotic vascular disease with no identified hemodynamically significant stenosis. 12/01/24-patient is awake alert and oriented x3. She has no major complaints. other than her initial symptoms of weakness. She reporst feeling slightly better and has started to work with PT. Brain MRI shows 1 cm focus of abnormal signal diffusion weighted images to the right. Or deep central white matter extending inferiorly into the basal ganglia consensus seen with the acute stroke. On MRI of spinal lumbar 10 hours shows mild lumbar degenerative changes with no evidence of disc herniation or focal spinal stenosis. She is pending a CTA of the head and neck per neurology recommendation. Suspecting vasculitis. 2D echo shows negative bubble study. No evidence of PFO/ASD agitated saline LVEF is 50-55% with stage I diastolic dysfunction no pericardial effusion. No valvular pathology. On laboratory ESR is 43, SUSU positive. WBCs 16.9 likely from starting prednisone no fevers T-max 99 in the last 24 hours. She has been slightly hypotensive systolic blood pressure between 153-180. We will slowly bring this down. D-dimer is negative. We will continue to appreciate neurology recommendations with the plans for IR to do a lumbar puncture. 12/02/24- No major over night events, he has been hemodynamically stable his blood pressure 155/85 heart rate in the 60s sinus rhythm respiratory rate of 16 saturating 99% and afebrile. Patient reports good urine output. On laboratory WBCs are 20.5 likely reactive from steroids platelet count is [id number]. Procalcitonin less than 0.05 creatinine is good 0.7 GFR of 93 glucose of 137 mg/dL magnesium was 1.7 covered per protocol. Chest x-ray this morning shows normal single-view chest x-ray. Patient is pending a lumbar puncture IR as per RN IR with like for us to try and attempt lumbar puncture 1st. Pt is refusing for [facility] to perform LP she wants to get it done through IR. She reports increased anxiety and fear due to her neurological issues and refused to let us try LP. REVIEW OF SYSTEMS: 12 point ROS reviewed with patient. Pertinent positives mentioned above. Otherwise negative. PHYSICAL EXAM: GENERAL: Alert, weak, awake oriented x 4, cachectic HEENT: EOMI, Sclera non icteric, moist mucosa NECK: Supple, no JVD, trachea midline LUNGS: Clear breath sounds bilaterally. No wheezes HEART: Regular rate and rhythm. Normal S1 and S2, without murmurs ABD: Abdomen soft, nontender. Bowel sounds present EXT: No clubbing cyanosis or edema. NEURO: Alert and oriented X4, follows commands. Unable to lifts the left leg off of the bed. She is able to move it slightly. She asked me if she was able to move the leg off of the bed. Her left arm is totally flaccid and contracted she reports that her left arm is at baseline. Legs are very thin, muscle loss (cachetic). Vital Signs (last 8hr) Date Time Temp Pulse Resp B/P (MAP) Pulse Ox O2 Delivery O2 Flow Rate FiO2 12/02/24 08:40 99 Room Air* 0 21 12/02/24 08:14 98.1 53 16 155/85 99 Room Air 12/02/24 04:30 98.2 54 18 161/84 97 Room Air LABS: Hematology Labs: Test 12/02/24 04:38 Range/Units White Blood Count 20.5 H 4.8-10.8 K/uL Red Blood Count 4.10 4.00-5.50 MIL/uL Hemoglobin 12.1 12.0-16.0 g/dL Hematocrit 38.0 36-48 % Mean Corpuscular Volume 92.7 79-99 fL Mean Corpuscular Hemoglobin 29.5 27.0-33.0 pg Mean Corpuscular Hemoglobin Concent 31.8 L 32.0-36.0 g/dL Red Cell Distribution Width 16.9 H 11.0-15.5 % Platelet Count 221 130-400 K/uL Mean Platelet Volume 10.9 H 7.5-10.5 fL Immature Granulocyte % (Auto) 1.0 0-1 % Neutrophils (%) (Auto) 90.1 H 40.0-77.0 % Lymphocytes (%) (Auto) 5.2 L 21.0-51.0 % Monocytes (%) (Auto) 2.9 L 3.0-13.0 % Eosinophils (%) (Auto) 0.6 0.0-8.0 % Basophils (%) (Auto) 0.2 0.0-5.0 % Neutrophils # (Auto) 18.5 H 1.8-7.7 K/uL Lymphocytes # (Auto) 1.1 1.0-4.8 K/uL Monocytes # (Auto) 0.6 0.1-1.0 K/uL Eosinophils # (Auto) 0.13 0.00-0.70 K/uL Basophils # (Auto) 0.04 0.00-0.20 K/uL Absolute Immature Granulocyte (auto 0.20 0-1 K/uL Nucleated Red Blood Cells 0.0 0.0-0.19 % Chemistry Labs: Test 12/02/24 04:38 12/01/24 11:06 Range/Units Sodium Level 138 136-145 mmol/L Potassium Level 4.0 3.5-5.1 mmol/L Chloride Level 101 101-111 mmol/L Carbon Dioxide Level 28 21-32 mmol/L Blood Urea Nitrogen 27 H 7-18 mg/dL Creatinine 0.7 0.5-1.0 mg/dL Glomerular Filtration Rate Calc 93 >90 mL/min Random Glucose 137 H 70-105 mg/dL Total Calcium 9.0 8.5-10.1 mg/dL Phosphorus Level 3.4 2.5-4.9 mg/dL Magnesium Level 1.70 L 1.80-2.40 mg/dL Total Bilirubin 0.4 0.2-1.0 mg/dL Aspartate Amino Transf (AST/SGOT) 18 10-37 U/L Alanine Aminotransferase (ALT/SGPT) 18 12-78 U/L Alkaline Phosphatase 113 50-136 U/L Total Protein 6.0 6.0-8.3 g/dL Albumin 2.4 L 3.5-5.0 g/dL Procalcitonin < 0.05 L 0.05-0.5 ng/mL Whole Blood Glucose 245 H 70-110 MG/DL Bedside Glucose Comment Notified Nurse Coagulation Labs: Test 12/01/24 15:48 Range/Units D-Dimer Quantitative (PE/DVT) 361 0-500 ng/mL DIAGNOSTICS / RADIOLOGY RESULTS: [ ]IMAGING REPORT Signed PATIENT: SUSU GHOSH MR#: [id number] : 1955 SEX: F AGE: 69 LOCATION: 2A ORDER 2300 STATUS: ADM IN REPORT#: [id number] SERVICE 0600 REASON: leukocytosis assess for pneumonia, ORDERING PHYSICIAN: AILEEN SHETH PROCEDURE: CXR1VW - CHEST 1VW CHEST 1VW REASON: leukocytosis assess for pneumonia, COMPARISON: 11/28/2024 FINDINGS: Single view of the chest was obtained. Lungs are clear. Heart size is normal. There is no pulmonary vascular congestion. Mediastinum and bony thorax appear unremarkable. IMPRESSION: 1. Normal single view chest x-ray. DICTATED BY: RADHA CADET MD DATE: 12/02/24904 ELECTRONICALLY SIGNED BY: RADHA CADET MD DATE: 12/02/24907 PLAN Tele monitoring Neuro checks every 4 hours and as needed. Hqouvfw20 mg p.o. daily. Atorvastatin 40 mg p.o. daily. Systolic blood pressure between 120 and 160 to maintain adequate brain perfusion. Per neurology recs pending IR lumbar puncture. ( Pt refused [facility] to try LP) Reconcile home medications once available. Glucometer checks a.c. and HS with insulin regular sliding scale per protocol. PT and OT evaluation and treat. A.m. labs. Monitor renal and liver function. Monitor electrolytes and treat accordingly. pending autoimmune labs chest XR in am pt started on steroids prednisone 20mg po BID GI and DVT prophylaxis. NEURO: Minimize central acting medications as possible. Maintain fall precautions, adequate lighting during the day PULMONARY: Supplemental 02 as needed. Maintain aspiration precautions at all times CARDIOVASCULAR: Follow hemodynamics. Vital signs per facility protocol GI & NUTRITION: Continue with nutritional support. Continue stool softeners and laxatives as needed. KIDNEYS & ELECTROLYTES: Strict monitoring of intake, output and overall fluid balance. Avoid nephrotoxic medications to the extent possible. Medications to be dosed according to renal function. Monitor electrolytes and replace as needed ENDOCRINE: Maintain blood glucose between 100-180 at all times. Hypoglycemia protocol in place INFECTIOUS DISEASE: Trend temperature, WBC and procalcitonin level Follow cultures, deescalate antibiotics as soon as possible. Panculture if new onset fever ONCOLOGY/HEMATOLOGY/COAGULATION: Monitor for s/s of bleeding Monitor hemoglobin, coagulation studies as needed SKIN: Pressure ulcer prevention per facility protocol Specialty mattress ORTHO/REHAB: Continue PT/OT Prophylaxis: Continue GI and DVT prophylaxis Code Status: Full Resuscitation Disposition: AILEEN HEAD Dec 02, 2024 11:07
--- NOTE | 2024-12-02 12:11 | NUR ---
LUMBAR PUNCTURE/ PT REQUEST PER DR CADET THERE IS NO NEED TO EXPOSE PT TO RADIATION FOR LUMBAR PUNCTURE. IF NEEDING ASSISTANCE CONTACT ANESTHESIA DEPT. FISH KIMBALL/ AILEEN NOTIFIED.
--- NOTE | 2024-12-02 19:48 | PN ---
PROGRESS NOTE Date of Service: Dec 02, 2024 Time of Service: 19:37 SUBJECTIVE: The patient has a right-sided anterior choroidal artery stroke observed in the MRI. TTE with left ventricle akinesia but no intracardiac thrombosis. Continues having left-sided weakness doing PT. LP pending. REVIEW OF SYSTEMS CONSTITUTIONAL: Positive for fatigue. HEAD/FACE: No signs of trauma. EENT: Denies eye pain, blurred vision, double vision, or light sensitivity. RESPIRATORY: Denies shortness of breath, cough, wheezing CARDIOVASCULAR: Denies chest pain, palpitation, syncope GASTROINTESTINAL/ABDOMINAL: Denies abdominal pain, constipation, diarrhea, nausea or vomiting GENITOURINARY: Denies dysuria or hematuria. MUSCULOSKELETAL: Denies joint pain, tenderness, or trauma. INTEGUMENTARY: Denies rash or itchiness NEUROLOGICAL/PSYCH: Bilateral lower extremities weakness PHYSICAL EXAM Mental status: The patient is alert, attentive, and oriented. Speech is clear and fluent with good repetition, comprehension, and naming. Pt recalls 3/3 objects at 5 minutes. Cranial nerves: CN II: Visual wynne are full to confrontation. CN III, IV, : At primary gaze, there is no eye deviation. CN V: Facial sensation is intact to pinprick in all 3 divisions bilaterally. Corneal responses are intact. CN VII: Face is symmetric with normal eye closure and smile. CN VIII: Hearing is normal to rubbing fingers CN IX, X: Palate elevates symmetrically. Phonation is normal. CN XI: Head turning and shoulder shrug are intact CN XII: Tongue is midline with normal movements and no atrophy. Motor: Severe weakness in bilateral upper or lower extremities with hemiplegia in the left upper and lower extremities. The patient has severe muscle atrophy in bilateral upper and lower extremities Reflexes: Reflexes are 0+ and symmetric at the biceps, triceps, knees, and ankles. Plantar responses are flexor. Sensory: Light touch, pinprick, position sense, and vibration sense are intact in fingers and toes. Coordination: Difficulty with rapid alternating movements of to weakness Gait/Stance: Not evaluated Vital Signs (last 8hr) Date Time Temp Pulse Resp B/P (MAP) Pulse Ox O2 Delivery O2 Flow Rate FiO2 12/02/24 18:01 98.2 68 16 147/84 95 Room Air 12/02/24 12:06 97.9 57 16 147/83 97 Room Air LABS: Laboratory: Test 12/02/24 04:38 12/01/24 15:48 12/01/24 11:06 Range/Units White Blood Count 20.5 H 4.8-10.8 K/uL Red Blood Count 4.10 4.00-5.50 MIL/uL Hemoglobin 12.1 12.0-16.0 g/dL Hematocrit 38.0 36-48 % Mean Corpuscular Volume 92.7 79-99 fL Mean Corpuscular Hemoglobin 29.5 27.0-33.0 pg Mean Corpuscular Hemoglobin Concent 31.8 L 32.0-36.0 g/dL Red Cell Distribution Width 16.9 H 11.0-15.5 % Platelet Count 221 130-400 K/uL Mean Platelet Volume 10.9 H 7.5-10.5 fL Immature Granulocyte % (Auto) 1.0 0-1 % Neutrophils (%) (Auto) 90.1 H 40.0-77.0 % Lymphocytes (%) (Auto) 5.2 L 21.0-51.0 % Monocytes (%) (Auto) 2.9 L 3.0-13.0 % Eosinophils (%) (Auto) 0.6 0.0-8.0 % Basophils (%) (Auto) 0.2 0.0-5.0 % Neutrophils # (Auto) 18.5 H 1.8-7.7 K/uL Lymphocytes # (Auto) 1.1 1.0-4.8 K/uL Monocytes # (Auto) 0.6 0.1-1.0 K/uL Eosinophils # (Auto) 0.13 0.00-0.70 K/uL Basophils # (Auto) 0.04 0.00-0.20 K/uL Absolute Immature Granulocyte (auto 0.20 0-1 K/uL Nucleated Red Blood Cells 0.0 0.0-0.19 % Sodium Level 138 136-145 mmol/L Potassium Level 4.0 3.5-5.1 mmol/L Chloride Level 101 101-111 mmol/L Carbon Dioxide Level 28 21-32 mmol/L Blood Urea Nitrogen 27 H 7-18 mg/dL Creatinine 0.7 0.5-1.0 mg/dL Glomerular Filtration Rate Calc 93 >90 mL/min Random Glucose 137 H 70-105 mg/dL Total Calcium 9.0 8.5-10.1 mg/dL Phosphorus Level 3.4 2.5-4.9 mg/dL Magnesium Level 1.70 L 1.80-2.40 mg/dL Total Bilirubin 0.4 0.2-1.0 mg/dL Aspartate Amino Transf (AST/SGOT) 18 10-37 U/L Alanine Aminotransferase (ALT/SGPT) 18 12-78 U/L Alkaline Phosphatase 113 50-136 U/L Total Protein 6.0 6.0-8.3 g/dL Albumin 2.4 L 3.5-5.0 g/dL Procalcitonin < 0.05 L 0.05-0.5 ng/mL D-Dimer Quantitative (PE/DVT) 361 0-500 ng/mL Whole Blood Glucose 245 H 70-110 MG/DL Bedside Glucose Comment Notified Nurse DIAGNOSTICS / RADIOLOGY: CT scan of the head without contrast: Cortical atrophy ASSESSMENT / PLAN: 1).- Right anterior choroidal artery stroke - possible causes include small- vessel disease versus embolic. CTA head and neck normal. The patient has a positive SUSU request and Sed rate. Request a D-dimer. Now the patient is on steroids prednisone 20 mg p.o. b.i.d. HbA1c 5.5%, LDL 86. Continue ASA 81mg po day and atorvastatin 40mg po day. 2).- Chronic polyneuropathy - based on the patient's history and physical examination it is likely this patient has a progressive neurodegenerative chronic polyneuropathy with possible diagnosis including CIDP. Positive sed rete and SUSU. CK normal. MRI cervical spine with mild cervical and lumbar degeneration not likely the cause of her major symptomatology. The pt will be nefit from a lumbar puncture to evaluate for possible CIDP. Obtain more information from Dr. Yun in regards of the reason diagnosis of autoimmune disorder. Request PT/OT prior to discharge 3).- Cervical and lumbar spondylosis - cervical mild to moderate not severe to be the major cause of her symptomatology. Continue close observation and follow PT/OT/ST consultation. Thank you for your consultation JERRY YBARRA MD Dec 02, 2024 19:48
[2024-12-03] VITALS (8 sets, daily range): BP systolic 133–185; BP diastolic 80–97; PULSE 53–102; RESP 16–20; TEMP 98–98.9; O2SAT 97–98
[2024-12-03 03:59] LABS: BASOPHILS # (AUTO) 0.02 K/uL (0.00-0.20); BASOPHILS % (AUTO) 0.1 % (0.0-5.0); EOSINOPHILS # (AUTO) 0.14 K/uL (0.00-0.70); HEMATOCRIT 36.6 % (36-48); IMMATURE GRANULOCYTE ABSOLUTE 0.15 K/uL (0-1); LYMPHOCYTES # (AUTO) 1.4 K/uL (1.0-4.8); LYMPHOCYTES % (AUTO) 9.8 % (21.0-51.0); MEAN CORPUSCULAR HEMOGLOBIN 29.8 pg (27.0-33.0); MEAN CORPUSCULAR HGB CONC 32.5 g/dL (32.0-36.0); MEAN CORPUSCULAR VOLUME 91.5 fL (79-99); MONOCYTES # (AUTO) 0.8 K/uL (0.1-1.0); MONOCYTES % (AUTO) 5.8 % (3.0-13.0); NEUTROPHILS # (AUTO) 11.6 K/uL (1.8-7.7); NEUTROPHILS % (AUTO) 82.2 % (40.0-77.0); PLATELET COUNT (AUTO) 202 K/uL (130-400); RED CELL DISTRIBUTION WIDTH 16.8 % (11.0-15.5); WHITE BLOOD COUNT (AUTO) 14.1 K/uL (4.8-10.8)
[2024-12-03 04:28] LABS: ALBUMIN 2.4 g/dL (3.5-5.0); BILIRUBIN,TOTAL 0.6 mg/dL (0.2-1.0); CREATININE 0.6 mg/dL (0.5-1.0); MAGNESIUM 2.1 mg/dL (1.80-2.40); POTASSIUM 3.8 mmol/L (3.5-5.1); TOTAL PROTEIN, SERUM 6.1 g/dL (6.0-8.3)
[2024-12-03] MEDS: hydrALAZine 20MG/ML VIAL IV PRN (12:14)
[2024-12-03 15:24] LABS: INR 1.08 (0.85-1.15)
--- NOTE | 2024-12-03 15:53 | PN ---
PROGRESS NOTE Date of Service: Dec 03, 2024 Time of Service: 15:52 SUBJECTIVE: Patient has been hemodynamically stable and afebrile no new neurological deficits have been observed. Continues having left-sided weakness doing PT. LP is pending. REVIEW OF SYSTEMS CONSTITUTIONAL: Positive for fatigue. HEAD/FACE: No signs of trauma. EENT: Denies eye pain, blurred vision, double vision, or light sensitivity. RESPIRATORY: Denies shortness of breath, cough, wheezing CARDIOVASCULAR: Denies chest pain, palpitation, syncope GASTROINTESTINAL/ABDOMINAL: Denies abdominal pain, constipation, diarrhea, nausea or vomiting GENITOURINARY: Denies dysuria or hematuria. MUSCULOSKELETAL: Denies joint pain, tenderness, or trauma. INTEGUMENTARY: Denies rash or itchiness NEUROLOGICAL/PSYCH: Bilateral lower extremities weakness PHYSICAL EXAM Mental status: The patient is alert, attentive, and oriented. Speech is clear and fluent with good repetition, comprehension, and naming. Pt recalls 3/3 objects at 5 minutes. Cranial nerves: CN II: Visual wynne are full to confrontation. CN III, IV, : At primary gaze, there is no eye deviation. CN V: Facial sensation is intact to pinprick in all 3 divisions bilaterally. Corneal responses are intact. CN VII: Face is symmetric with normal eye closure and smile. CN VIII: Hearing is normal to rubbing fingers CN IX, X: Palate elevates symmetrically. Phonation is normal. CN XI: Head turning and shoulder shrug are intact CN XII: Tongue is midline with normal movements and no atrophy. Motor: Severe weakness in bilateral upper or lower extremities with hemiplegia in the left upper and lower extremities. The patient has severe muscle atrophy in bilateral upper and lower extremities Reflexes: Reflexes are 0+ and symmetric at the biceps, triceps, knees, and ankles. Plantar responses are flexor. Sensory: Light touch, pinprick, position sense, and vibration sense are intact in fingers and toes. Coordination: Difficulty with rapid alternating movements of to weakness Gait/Stance: Not evaluated Vital Signs (last 8hr) Date Time Temp Pulse Resp B/P (MAP) Pulse Ox O2 Delivery O2 Flow Rate FiO2 12/03/24 13:15 102 133/80 12/03/24 12:03 98.1 57 18 185/95 97 Room Air 12/03/24 08:00 97 Room Air* 0 21 LABS: Laboratory: Test 12/03/24 14:50 12/03/24 03:37 12/02/24 04:38 Range/Units Prothrombin Time 12.0 H 9.6-11.6 SEC Prothromb Time International Ratio 1.08 0.85-1.15 White Blood Count 14.1 #H 4.8-10.8 K/uL Red Blood Count 4.00 4.00-5.50 MIL/uL Hemoglobin 11.9 L 12.0-16.0 g/dL Hematocrit 36.6 36-48 % Mean Corpuscular Volume 91.5 79-99 fL Mean Corpuscular Hemoglobin 29.8 27.0-33.0 pg Mean Corpuscular Hemoglobin Concent 32.5 32.0-36.0 g/dL Red Cell Distribution Width 16.8 H 11.0-15.5 % Platelet Count 202 130-400 K/uL Mean Platelet Volume 11.3 H 7.5-10.5 fL Immature Granulocyte % (Auto) 1.1 H 0-1 % Neutrophils (%) (Auto) 82.2 H 40.0-77.0 % Lymphocytes (%) (Auto) 9.8 L 21.0-51.0 % Monocytes (%) (Auto) 5.8 3.0-13.0 % Eosinophils (%) (Auto) 1.0 0.0-8.0 % Basophils (%) (Auto) 0.1 0.0-5.0 % Neutrophils # (Auto) 11.6 H 1.8-7.7 K/uL Lymphocytes # (Auto) 1.4 1.0-4.8 K/uL Monocytes # (Auto) 0.8 0.1-1.0 K/uL Eosinophils # (Auto) 0.14 0.00-0.70 K/uL Basophils # (Auto) 0.02 0.00-0.20 K/uL Absolute Immature Granulocyte (auto 0.15 0-1 K/uL Nucleated Red Blood Cells 0.0 0.0-0.19 % Sodium Level 140 136-145 mmol/L Potassium Level 3.8 3.5-5.1 mmol/L Chloride Level 103 101-111 mmol/L Carbon Dioxide Level 30 21-32 mmol/L Blood Urea Nitrogen 22 H 7-18 mg/dL Creatinine 0.6 0.5-1.0 mg/dL Glomerular Filtration Rate Calc 97 >90 mL/min Random Glucose 114 H 70-105 mg/dL Total Calcium 8.9 8.5-10.1 mg/dL Phosphorus Level 3.0 2.5-4.9 mg/dL Magnesium Level 2.10 1.80-2.40 mg/dL Total Bilirubin 0.6 # 0.2-1.0 mg/dL Aspartate Amino Transf (AST/SGOT) 16 10-37 U/L Alanine Aminotransferase (ALT/SGPT) 17 12-78 U/L Alkaline Phosphatase 96 50-136 U/L Total Protein 6.1 6.0-8.3 g/dL Albumin 2.4 L 3.5-5.0 g/dL Procalcitonin < 0.05 L 0.05-0.5 ng/mL DIAGNOSTICS / RADIOLOGY: CT scan of the head without contrast: Cortical atrophy ASSESSMENT / PLAN: 1).- Right anterior choroidal artery stroke - possible causes include small- vessel disease versus embolic. CTA head and neck normal. The patient has a positive SUSU request and Sed rate. D-dimer was normal. Now the patient is on steroids prednisone 20 mg p.o. b.i.d. HbA1c 5.5%, LDL 86. Continue ASA 81mg po day and atorvastatin 40mg po day. 2).- Chronic polyneuropathy - based on the patient's history and physical examination it is likely this patient has a progressive neurodegenerative chronic polyneuropathy with possible diagnosis including CIDP. Positive sed rete and SUSU. CK normal. MRI cervical spine with mild cervical and lumbar degenerat ion not likely the cause of her major symptomatology. The pt will benefit from a lumbar puncture to evaluate for possible CIDP. Awaiting lumbar puncture to be done today. Obtain more information from Dr. Yun in regards of the reason diagnosis of autoimmune disorder. Request PT/OT prior to discharge 3).- Cervical and lumbar spondylosis - cervical mild to moderate not severe to be the major cause of her symptomatology. Continue close observation and follow PT/OT/ST consultation. Thank you for your consultation JERRY YBARRA MD Dec 03, 2024 15:53
[2024-12-04] VITALS (8 sets, daily range): BP systolic 155–169; BP diastolic 75–95; PULSE 54–84; RESP 16–18; TEMP 97.9–98.7; O2SAT 98
--- NOTE | 2024-12-04 00:44 | PN ---
[facility] PROGRESS NOTE Date Patient Seen: Dec 03, 2024 Time of Visit: 12:30 Supervising Physician: Alber Guzman MD Primary Care Physician: SHAISTA SCHUSTER MD, Dr. Outpatient Specialists: Dr. Shanelle Mast, neurology in [place], [place] Dr. Kaylah Perez, rheumatology Inpatient Consults: Dr. 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 Chronic problem list: Autoimmune neuropathy, Hypertension, hypothyroidism, hypokalemia, abnormal weight loss, leukocytosis, debility/frailty/weakness INTERVAL HISTORY: HPI: Mrs Ghosh is a 69-year-old female significant medical history of chronic debility with left arm weakness who presented to [facility] ED for evaluation of left facial numbness and weakness. Patient the patient reports chronically having issues with mobility and movement over the last several months. Patient has been treated for autoimmune nephropathy. Patient states she was at her baseline health earlier today when at 4:30 p.m. she started feeling numbness on her left face then she started with increased left leg mobility which prompted her ED visit. The patient reports that at baseline she is able to walk with a walker. She states that today she could not lift her leg out of the bed. She reports that she was recently discharged from [facility] for therapy due to her insurance not covering. She reports that she was only one week at home and now with this weakness she is back at the hospital. She reports that her brief writer Dr. Mast and other physicians can tell her what is wrong with her. She reports that ER physician informed her that he spoke to Dr. Thurston, neurologist here at [facility] and that the plan is to MRI the head and all her spine. She reports that she agreed with this because she wants an answered to her problem. ED physician requested patient be admitted with the diagnosis of peripheral neuropathy. Interval history 11/29 patient is awake and oriented x3 no event overnight. Patient stated that her left-side motor function remains weak. Patient has left upper arm paralysis but was able to move bilateral lower extremity. This times is unable to do that. We will obtain MRI of the brain. Otherwise we will obtain lab in the morning. We will obtain recommendation from Neurology. Home medications. 11/30- patient is awake alert and oriented x3. She continues with generalized body weakness with increased weakness to left side. Otherwise no major overnight events. Patient is in no apparent distress. He is hemodynamically stable and afebrile. CBC unremarkable similar to yesterday with neutrophils trending down 82.9 today. ESR is 43 elevated. Chemistry is unremarkable creatinine is 1.0 GFR of 61 slightly decreased from yesterday. TSH is 3.79. Patient continues on her levothyroxine. Patient is pending MRI of the brain, thoracic, lumbar and cervical spine. Carotid ultrasound shows mild arteriosclerotic vascular disease with no identified hemodynamically significant stenosis. 12/01/24-patient is awake alert and oriented x3. She has no major complaints. other than her initial symptoms of weakness. She reporst feeling slightly better and has started to work with PT. Brain MRI shows 1 cm focus of abnormal signal diffusion weighted images to the right. Or deep central white matter extending inferiorly into the basal ganglia consensus seen with the acute stroke. On MRI of spinal lumbar 10 hours shows mild lumbar degenerative changes with no evidence of disc herniation or focal spinal stenosis. She is pending a CTA of the head and neck per neurology recommendation. Suspecting vasculitis. 2D echo shows negative bubble study. No evidence of PFO/ASD agitated saline LVEF is 50-55% with stage I diastolic dysfunction no pericardial effusion. No valvular pathology. On laboratory ESR is 43, SUSU positive. WBCs 16.9 likely from starting prednisone no fevers T-max 99 in the last 24 hours. She has been slightly hypotensive systolic blood pressure between 153-180. We will slowly bring this down. D-dimer is negative. We will continue to appreciate neurology recommendations with the plans for IR to do a lumbar puncture. 12/02/24- No major over night events, he has been hemodynamically stable his blood pressure 155/85 heart rate in the 60s sinus rhythm respiratory rate of 16 saturating 99% and afebrile. Patient reports good urine output. On laboratory WBCs are 20.5 likely reactive from steroids platelet count is [id number]. Procalcitonin less than 0.05 creatinine is good 0.7 GFR of 93 glucose of 137 mg/dL magnesium was 1.7 covered per protocol. Chest x-ray this morning shows normal single-view chest x-ray. Patient is pending a lumbar puncture IR as per RN IR with like for us to try and attempt lumbar puncture 1st. Pt is refusing for [facility] to perform LP she wants to get it done through IR. She reports increased anxiety and fear due to her neurological issues and refused to let us try LP. 12/03/24- pt is awake alert and oriented, IR will not be able to perform LP. pt agreed for us ([facility]) perform LP. Unable to perform today due to pt received her lovenox at 10 am. will hold tomorrow's am lovenox dose and plan for LP tomorrow. INR is 1.08. Pt is nervous about the procedure but it has been explained to her in detail as well as benefits and risks and she agrees with it. Otherwise no major overnight events. pt has been slightly hypertensive and hydralazine has been added PRN. Started pt on lisinopril daily and will monitor to avoid hypotension or hypertension. Pt to continue with PT. family was at bedside answered all thier questions. REVIEW OF SYSTEMS: General: No malaise or fever. Neurological: No fainting episodes or seizures. HEENT: No nasal congestion or nasal secretion. Respiratory: No cough, shortness of breath, or wheezing Cardiac: No chest pain or palpitations. Gastrointestinal: No vomiting or diarrhea. Genitourinary: No dysuria hematuria. Skin: No rashes or lesions. Hematological: No bruises or bleeding. Musculoskeletal: GBW with more weakness to left side. Paraesthesia. Psychiatric: No depression or panic attacks. PHYSICAL EXAM: GENERAL: Alert, weak, awake oriented x 4, cachectic HEENT: EOMI, Sclera non icteric, moist mucosa NECK: Supple, no JVD, trachea midline LUNGS: Clear breath sounds bilaterally. No wheezes HEART: Regular rate and rhythm. Normal S1 and S2, without murmurs ABD: Abdomen soft, nontender. Bowel sounds present EXT: No clubbing cyanosis or edema. NEURO: Alert and oriented X4, follows commands. Unable to lifts the left leg off of the bed. She is able to move it slightly. She asked me if she was able to move the leg off of the bed. Her left arm is totally flaccid and contracted she reports that her left arm is at baseline. Legs are very thin, muscle loss (cachetic). Vital Signs (last 8hr) Date Time Temp Pulse Resp B/P (MAP) Pulse Ox O2 Delivery O2 Flow Rate FiO2 12/03/24 19:15 98.1 72 20 158/85 97 Room Air 12/03/24 16:54 99.0 83 16 157/93 97 Room Air LABS: Hematology Labs: Test 12/03/24 03:37 Range/Units White Blood Count 14.1 #H 4.8-10.8 K/uL Red Blood Count 4.00 4.00-5.50 MIL/uL Hemoglobin 11.9 L 12.0-16.0 g/dL Hematocrit 36.6 36-48 % Mean Corpuscular Volume 91.5 79-99 fL Mean Corpuscular Hemoglobin 29.8 27.0-33.0 pg Mean Corpuscular Hemoglobin Concent 32.5 32.0-36.0 g/dL Red Cell Distribution Width 16.8 H 11.0-15.5 % Platelet Count 202 130-400 K/uL Mean Platelet Volume 11.3 H 7.5-10.5 fL Immature Granulocyte % (Auto) 1.1 H 0-1 % Neutrophils (%) (Auto) 82.2 H 40.0-77.0 % Lymphocytes (%) (Auto) 9.8 L 21.0-51.0 % Monocytes (%) (Auto) 5.8 3.0-13.0 % Eosinophils (%) (Auto) 1.0 0.0-8.0 % Basophils (%) (Auto) 0.1 0.0-5.0 % Neutrophils # (Auto) 11.6 H 1.8-7.7 K/uL Lymphocytes # (Auto) 1.4 1.0-4.8 K/uL Monocytes # (Auto) 0.8 0.1-1.0 K/uL Eosinophils # (Auto) 0.14 0.00-0.70 K/uL Basophils # (Auto) 0.02 0.00-0.20 K/uL Absolute Immature Granulocyte (auto 0.15 0-1 K/uL Nucleated Red Blood Cells 0.0 0.0-0.19 % Chemistry Labs: Test 12/03/24 03:37 12/02/24 04:38 Range/Units Sodium Level 140 136-145 mmol/L Potassium Level 3.8 3.5-5.1 mmol/L Chloride Level 103 101-111 mmol/L Carbon Dioxide Level 30 21-32 mmol/L Blood Urea Nitrogen 22 H 7-18 mg/dL Creatinine 0.6 0.5-1.0 mg/dL Glomerular Filtration Rate Calc 97 >90 mL/min Random Glucose 114 H 70-105 mg/dL Total Calcium 8.9 8.5-10.1 mg/dL Phosphorus Level 3.0 2.5-4.9 mg/dL Magnesium Level 2.10 1.80-2.40 mg/dL Total Bilirubin 0.6 # 0.2-1.0 mg/dL Aspartate Amino Transf (AST/SGOT) 16 10-37 U/L Alanine Aminotransferase (ALT/SGPT) 17 12-78 U/L Alkaline Phosphatase 96 50-136 U/L Total Protein 6.1 6.0-8.3 g/dL Albumin 2.4 L 3.5-5.0 g/dL Procalcitonin < 0.05 L 0.05-0.5 ng/mL Coagulation Labs: Test 12/03/24 14:50 Range/Units Prothrombin Time 12.0 H 9.6-11.6 SEC Prothromb Time International Ratio 1.08 0.85-1.15 DIAGNOSTICS / RADIOLOGY RESULTS: [ ] PATIENT: SUSU GHOSH MR#: [id number] : 1955 SEX: F AGE: 69 LOCATION: [facility] ORDER 2300 STATUS: ADM IN REPORT#: [id number] SERVICE 0600 REASON: leukocytosis assess for pneumonia, ORDERING PHYSICIAN: AILEEN SHETH PROCEDURE: CXR1VW - CHEST 1VW CHEST 1VW REASON: leukocytosis assess for pneumonia, COMPARISON: 11/28/2024 FINDINGS: Single view of the chest was obtained. Lungs are clear. Heart size is normal. There is no pulmonary vascular congestion. Mediastinum and bony thorax appear unremarkable. IMPRESSION: 1. Normal single view chest x-ray. DICTATED BY: RADHA CADET MD DATE: 12/02/24 0905 ELECTRONICALLY SIGNED BY: RADHA CADET MD DATE: 12/02/24 09 [place] [id number] [place] [id number] IMAGING REPORT Signed PATIENT: SUSU GHOSH MR#: [id number] : 1955 SEX: F AGE: 69 LOCATION: 2D ORDER 58 STATUS: ADM IN REPORT#: [id number] SERVICE 57 REASON: cva. please add bubble study ORDERING PHYSICIAN: AILEEN SHETH PROCEDURE: ECHO CMP - ECHO 2-D COMPLETE APPROVED REPORT EXAM: Two-dimensional and M-mode echocardiogram with Doppler and color Doppler. INDICATION ICD: Cerebral vascular attack Contrast Details Indication: Rule out PFO Agent/Amount Used: Agitated Saline 2D Dimensions RVDd 3.8 cm LVEF(%) 55.1 (>50%) LVED Vol(simp.) 52.5 mL IVSd 0.9 (0.7-1.1cm) FS(%) 28 % LVES Vol(simp.) 23.6 mL LVDd 3.9 (3.8-5.6cm) LA (2D) 2.7 (1.6-4.0cm) LVEF(%, simp.) 55 % PWd 0.8 (0.7-1.1cm) Ao Root(2D) 3.0 (2.0-3.7cm) LA ESV INDEX (4CH) 15.30 mL/m2 IVSs 1.2 cm LVOT diam 1.8 (1.8-2.4cm) LA ESV INDEX (2CH) 9.60 mL/m2 LVDs 2.8 (2.5-4.0cm) LA ESV INDEX (BP) 12.90 mL/m2 PWs 1.4 cm M-Mode Dimensions EPSS 0.8 cm LA (MM) 2.9 (1.6-4.0cm) Ao Root(MM) 3.0 (2.0-3.7cm) Aortic Valve AoV VTI 0.2 m Ao Mean GR 2.0 mmHg LVOT VTI 0.12 m ELYSIA (VMAX) 1.5 cm2 ELYSIA (VTI) 1.5 cm2 Mitral Valve MV E Vmax 31.5 cm/s DECEL Time 127 ms MV A Vmax 67.4 cm/s P 1/2 T 43 ms E/A ratio 0.5 MVA (PHT) 5.1 cm2 TDI E/E' Medial 8.5 E/E' Lateral 7.5 Medial E' Peak V 3.70 cm/s Lateral E' Peak V 4.20 cm/s Pulmonary Valve PV VTI 0.19 m PV Mean GR 4 mmHg Tricuspid Valve RAP (EST) 3 mmHg RVSP 3.0 mmHg Left Ventricle The left ventricle is normal size. There is akinesis to dyskinesis of the posterobase and basal inferoseptum. There is normal left ventricular wall thickness. LVEF is 50-55%. Stage I diastolic dysfunction. Right Ventricle The right ventricle is normal size. The right ventricular systolic function is normal. Atria The left atrium size is normal. Negative bubble study. No evidence of PFO/ASD by agitated saline. The right atrium size is normal. Aortic Valve The aortic valve is normal in structure. No aortic regurgitation is present. There is no aortic valvular stenosis. Mitral Valve Mitral valve leaflets open well. There is no mitral valve regurgitation noted. There is no mitral valve stenosis. Tricuspid Valve The tricuspid valve is normal in structure. There is no tricuspid valve regurgitation noted. Pulmonic Valve The pulmonary valve is normal in structure. There is no pulmonic valvular regurgitation. Great Vessels The aortic root is normal in size. The IVC is normal in size and collapses >50% with inspiration. Pericardium There is no pericardial effusion. Other Information Quality : Technically difficult study due to body habitus Conclusion Negative bubble study. No evidence of PFO/ASD by agitated saline. The left ventricle is normal size. There is normal left ventricular wall thickness. There is akinesis to dyskinesis of the posterobase and basal inferoseptum. LVEF is 50-55%. Stage I diastolic dysfunction. The aortic valve is normal in structure. There is no mitral valve regurgitation noted. There is no pericardial effusion. DICTATED BY: BRUNA AGARWAL MD DATE: 12/01/24 6063 ELECTRONICALLY SIGNED BY: BRUNA AGARWAL MD DATE: 12/01/24 3519 PLAN Tele monitoring Neuro checks every 4 hours and as needed. [id number] mg p.o. daily. Atorvastatin 40 mg p.o. daily. Systolic blood pressure between 120 and 160 to maintain adequate brain perfusion. Pt agreed to LP. Planing LP for tomorrow. 12/04/24 Reconcile home medications once available. Glucometer checks a.c. and HS with insulin regular sliding scale per protocol. PT and OT evaluation and treat. A.m. labs. Monitor renal and liver function. Monitor electrolytes and treat accordingly. pending autoimmune labs chest XR in am pt started on steroids prednisone 20mg po BID GI and DVT prophylaxis. NEURO: Minimize central acting medications as possible. Maintain fall precautions, adequate lighting during the day PULMONARY: Supplemental 02 as needed. Maintain aspiration precautions at all times CARDIOVASCULAR: Follow hemodynamics. Vital signs per facility protocol GI & NUTRITION: Continue with nutritional support. Continue stool softeners and laxatives as needed. KIDNEYS & ELECTROLYTES: Strict monitoring of intake, output and overall fluid balance. Avoid nephrotoxic medications to the extent possible. Medications to be dosed according to renal function. Monitor electrolytes and replace as needed ENDOCRINE: Maintain blood glucose between 100-180 at all times. Hypoglycemia protocol in place INFECTIOUS DISEASE: Trend temperature, WBC and procalcitonin level Follow cultures, deescalate antibiotics as soon as possible. Panculture if new onset fever ONCOLOGY/HEMATOLOGY/COAGULATION: Monitor for s/s of bleeding Monitor hemoglobin, coagulation studies as needed SKIN: Pressure ulcer prevention per facility protocol Specialty mattress ORTHO/REHAB: Continue PT/OT Prophylaxis: Continue GI and DVT prophylaxis Code Status: Full Resuscitation Disposition: AILEEN HEAD Dec 04, 2024 00:44
[2024-12-04 03:33] LABS: BASOPHILS # (AUTO) 0.02 K/uL (0.00-0.20); BASOPHILS % (AUTO) 0.2 % (0.0-5.0); EOSINOPHILS # (AUTO) 0.14 K/uL (0.00-0.70); EOSINOPHILS % (AUTO) 1.1 % (0.0-8.0); HEMATOCRIT 39.4 % (36-48); IMMATURE GRANULOCYTE ABSOLUTE 0.15 K/uL (0-1); LYMPHOCYTES % (AUTO) 8.2 % (21.0-51.0); MEAN CORPUSCULAR HGB CONC 32.2 g/dL (32.0-36.0); MEAN CORPUSCULAR VOLUME 92.9 fL (79-99); MONOCYTES # (AUTO) 0.7 K/uL (0.1-1.0); MONOCYTES % (AUTO) 5.8 % (3.0-13.0); NEUTROPHILS # (AUTO) 10.6 K/uL (1.8-7.7); NEUTROPHILS % (AUTO) 83.5 % (40.0-77.0); PLATELET COUNT (AUTO) 215 K/uL (130-400); RED BLOOD CELL COUNT(AUTO) 4.24 MIL/uL (4.00-5.50); RED CELL DISTRIBUTION WIDTH 17.2 % (11.0-15.5); WHITE BLOOD COUNT (AUTO) 12.6 K/uL (4.8-10.8)
[2024-12-04 03:57] LABS: ALBUMIN 2.5 g/dL (3.5-5.0); BILIRUBIN,TOTAL 0.6 mg/dL (0.2-1.0); CREATININE 0.8 mg/dL (0.5-1.0); POTASSIUM 4.1 mmol/L (3.5-5.1); THYROID STIMULATING HORMONE 2.14 uIU/mL (0.36-3.74); TOTAL PROTEIN, SERUM 6.2 g/dL (6.0-8.3)
[2024-12-04] MEDS: INSULIN humuLIN R 100 UNIT/ML 3ML SQ SCH (06:34)
[2024-12-04] MEDS: LISINOPRIL 10 MG TABLET PO SCH (09:00)
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
[2024-12-05] VITALS (9 sets, daily range): BP systolic 102–177; BP diastolic 61–99; PULSE 63–102; RESP 18–20; TEMP 97–98.7; O2SAT 98
[2024-12-05 05:14] LABS: BASOPHILS # (AUTO) 0.02 K/uL (0.00-0.20); BASOPHILS % (AUTO) 0.1 % (0.0-5.0); EOSINOPHILS # (AUTO) 0.14 K/uL (0.00-0.70); HEMATOCRIT 40.2 % (36-48); IMMATURE GRANULOCYTE ABSOLUTE 0.14 K/uL (0-1); LYMPHOCYTES # (AUTO) 0.8 K/uL (1.0-4.8); LYMPHOCYTES % (AUTO) 6.1 % (21.0-51.0); MEAN CORPUSCULAR HEMOGLOBIN 29.6 pg (27.0-33.0); MEAN CORPUSCULAR HGB CONC 32.1 g/dL (32.0-36.0); MEAN CORPUSCULAR VOLUME 92.2 fL (79-99); MONOCYTES # (AUTO) 0.4 K/uL (0.1-1.0); MONOCYTES % (AUTO) 2.7 % (3.0-13.0); NEUTROPHILS # (AUTO) 12.1 K/uL (1.8-7.7); NEUTROPHILS % (AUTO) 89.1 % (40.0-77.0); PLATELET COUNT (AUTO) 210 K/uL (130-400); RED BLOOD CELL COUNT(AUTO) 4.36 MIL/uL (4.00-5.50); RED CELL DISTRIBUTION WIDTH 17.2 % (11.0-15.5); WHITE BLOOD COUNT (AUTO) 13.6 K/uL (4.8-10.8)
[2024-12-05 05:28] LABS: ALBUMIN 2.6 g/dL (3.5-5.0); BILIRUBIN,TOTAL 0.7 mg/dL (0.2-1.0); CREATININE 0.7 mg/dL (0.5-1.0); MAGNESIUM 2.1 mg/dL (1.80-2.40); POTASSIUM 4.3 mmol/L (3.5-5.1); TOTAL PROTEIN, SERUM 6.4 g/dL (6.0-8.3)
[2024-12-05] MEDS: hydrALAZine HCL 10 MG TABLET PO SCH (09:32)
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
[2024-12-05] MEDS: hydrOXYzine 25 MG TABLET PO PRN (09:49)
--- NOTE | 2024-12-05 12:21 | NUR ---
DCP/[facility] Met w pt and spouse this afternoon to f/u on dcp. Pt requesting referral to [facility]. ISIAH/PC obtained. Discussed also poss SNF if not approved/accepted. Pt and spouse to decide on SNF once a determination is received on IRU. Per Carissa HICKS ok to initiate referral. Referral/clinical faxed to [facility]. Estrella w [facility] notified of new referral.
[2024-12-05 12:40] LABS: RAPID GROUP A STREP negative (NEGATIVE)
[2024-12-05] MEDS: ZOSYN 3.375GM +NS 50ML IV SCH ×2 (13:17→21:08)
[2024-12-05 13:33] LABS: COVID19 (SARS ANTIGEN RAPID) POSITIVE FOR SARS AG (NEGATIVE); INFLUENZA TYPE A NEGATIVE FOR TYPE A (NEGATIVE); INFLUENZA TYPE B NEGATIVE FOR TYPE B (NEGATIVE)
--- NOTE | 2024-12-05 14:45 | NUR ---
PT WAS TRANSFERRED TO ROOM 201 VIA BED DUE TO POSITIVE FOR COVID. WAS ADVISED OF ROOM NUMBER AND REASON FOR TRANSFER.
[2024-12-05] MEDS ORDERED: PHARMACY COMMUNICATION MISC SCH (17:00)
[2024-12-06] VITALS (15 sets, daily range): BP systolic 96–142; BP diastolic 57–81; PULSE 50–69; RESP 16–18; TEMP 97.6–98.4; O2SAT 97–98
[2024-12-06 04:59] LABS: BASOPHILS # (AUTO) 0.03 K/uL (0.00-0.20); BASOPHILS % (AUTO) 0.2 % (0.0-5.0); EOSINOPHILS # (AUTO) 0.02 K/uL (0.00-0.70); EOSINOPHILS % (AUTO) 0.1 % (0.0-8.0); HEMATOCRIT 37.7 % (36-48); IMMATURE GRANULOCYTE ABSOLUTE 0.19 K/uL (0-1); LYMPHOCYTES % (AUTO) 7.2 % (21.0-51.0); MEAN CORPUSCULAR HEMOGLOBIN 30.3 pg (27.0-33.0); MEAN CORPUSCULAR HGB CONC 32.4 g/dL (32.0-36.0); MEAN CORPUSCULAR VOLUME 93.8 fL (79-99); MONOCYTES # (AUTO) 0.3 K/uL (0.1-1.0); MONOCYTES % (AUTO) 2.2 % (3.0-13.0); NEUTROPHILS # (AUTO) 12.1 K/uL (1.8-7.7); NEUTROPHILS % (AUTO) 88.9 % (40.0-77.0); PLATELET COUNT (AUTO) 206 K/uL (130-400); RED BLOOD CELL COUNT(AUTO) 4.02 MIL/uL (4.00-5.50); RED CELL DISTRIBUTION WIDTH 17.1 % (11.0-15.5); WHITE BLOOD COUNT (AUTO) 13.7 K/uL (4.8-10.8)
[2024-12-06 05:13] LABS: ALBUMIN 2.3 g/dL (3.5-5.0); BILIRUBIN,TOTAL 0.8 mg/dL (0.2-1.0); CREATININE 0.8 mg/dL (0.5-1.0); MAGNESIUM 2.2 mg/dL (1.80-2.40); POTASSIUM 3.8 mmol/L (3.5-5.1); TOTAL PROTEIN, SERUM 5.8 g/dL (6.0-8.3)
--- NOTE | 2024-12-06 09:50 | NUR ---
DX LUMBAR PUNCTURE PROCEDURE PERFORMED BY DR Alejandro KUMARI. PUNCTURE SITE LOWER BACK. SPECIMEN COLLECTED AND SENT TO LAB. PATIENT TOLERATED PROCEDURE WELL. END OF PROCEDURE AT 0935. SPINAL NEEDLE REMOVED AND BANDAID APPLIED. NO BLEEDING NOTED. REPORT GIVEN TO Lesly REDDY RN AND PATIENT TRANSPORTED TO [facility] VIA BED AT 0950. AAO X3 WITH NO C/O PAIN.
--- NOTE | 2024-12-06 10:33 | HMCIMG ---
LUMBAR PUNCTURE DX IR HISTORY: Neck pain COMPARISON: None TECHNIQUE: Informed consent was obtained. Risks and benefits were explained to the patient. A timeout was performed. Patient was prepped and draped in a sterile fashion. Local anesthetics was given as required. Under fluoroscopic guidance, L3-4 level was localized. Fluoroscopic guidance lumbar puncture was performed with 20-gauge spinal needle. FINDINGS: [place] CSF fluid was aspirated. This is most consistent with bloody tap. CSF fluid appears to be cloudy. Patient tolerated procedure without complication. Patient left the department in good condition. IMPRESSION: 1. Uncomplicated fluoroscopic guidance lumbar puncture.
--- NOTE | 2024-12-06 10:46 | HMCIMG ---
CHEST 1VW HISTORY: Covid COMPARISON: None FINDINGS: A frontal projection of the chest was obtained. Prominent interstitial markings are seen with possible superimposed infiltrates. The heart is borderline enlarged. Degenerative changes are seen. No evidence of aortic calcification is seen. IMPRESSION: 1. Prominent interstitial markings are seen with possible superimposed infiltrates.
[2024-12-06 11:00] LABS: GLUCOSE, CSF 79 mg/dL (40-70); TOTAL PROTEIN, CSF 153 mg/dL (15-45)
[2024-12-06 11:15] LABS: RED BLOOD CELL1,CSF 4462 CMM (0-0); WHITE BLOOD CELL1,CSF 18 CMM (0-5)
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
[2024-12-06 11:25] LABS: APPEARANCE,CSF CLOUDY (CLEAR); COLOR,CSF PINK (COLORLESS); CSF TOTAL VOLUME 6.5 mL; CSF TUBE NUMBER 3
[2024-12-06 13:05] LABS: CSF TOTAL CELLS COUNTED 100; LYMPHOCYTES1,CSF 44 %; MONOCYTES1,CSF 2 %; NEUTROPHILS1,CSF 54 %
[2024-12-06] MEDS: AZITHROMYCIN 250 MG TABLET PO ONE (15:48)
[2024-12-07] VITALS (8 sets, daily range): BP systolic 100–140; BP diastolic 57–73; PULSE 48–71; RESP 16–18; TEMP 97.8–98.8; O2SAT 97–98
[2024-12-07 04:16] LABS: HEMATOCRIT 37.1 % (36-48); MEAN CORPUSCULAR HEMOGLOBIN 29.9 pg (27.0-33.0); MEAN CORPUSCULAR HGB CONC 31.5 g/dL (32.0-36.0); MEAN CORPUSCULAR VOLUME 94.9 fL (79-99); RED BLOOD CELL COUNT(AUTO) 3.91 MIL/uL (4.00-5.50); RED CELL DISTRIBUTION WIDTH 17.2 % (11.0-15.5); WHITE BLOOD COUNT (AUTO) 13.4 K/uL (4.8-10.8)
[2024-12-07 04:29] LABS: CREATININE 0.7 mg/dL (0.5-1.0); POTASSIUM 3.8 mmol/L (3.5-5.1)
[2024-12-07] MEDS: AZITHROMYCIN 250 MG TABLET PO SCH (08:36)
[2024-12-07] MEDS: ENOXAPARIN SODIUM 30 MG/0.3 ML SQ SCH (08:37)
--- NOTE | 2024-12-07 13:22 | NUR ---
CM NOTE/[facility] CM spoke to Estrella with [facility]. States they cannot accept patient until 12/12 due to covid status. CM offered patient alternate plan to [facility]. Patient and spouse agreeable to changing facilities. CM obtained ISIAH for [facility] and sent referral. CM updated Estrella with [facility] and advised to cancel auth request. CM to f/u.
--- NOTE | 2024-12-07 15:16 | NUR ---
Nutrition consult per LOS >7 Reviewed labs, notes, and medications. S/p lumbar puncture per IR, has autoimmune neuropathy, on regular diet, anti-depressant, iv abx, insulin, elevated bun 27, Cr WNL, hyperglycemia 267, A1C WNL per chart review. 75 %PO intake, wt via bed scale, last BM 12/05/24, no edema, mild muscle and fat loss, no wounds per nursing. Pt with non-severe PCM, Supplement thiamin 100 mg/day for 5-7 days + MVI QD for at least 10 days. Recommendations: -Provide regular diet + neutropenic diet + ensure HP qd w/ am tray + magic up QD w/ dinner tray -Monitor PO intake -Encourage PO intake as able -Monitor BM -If no BM >3 days consider stool softener -Monitor electrolytes -Replenish electrolytes per protocol -Monitor wts -Reweigh as able -Order Vit D, vit b-12 labs to rule out deficiencies -Provide b-complex QD -Texture per [employer] recs -Recommend Pt to follow up with PCP -Monitor goals of care RD to follow + available for consult per protocol Addendum: 12/07/24 at [address] Amended: Links added.
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
[2024-12-08] VITALS (9 sets, daily range): BP systolic 113–151; BP diastolic 61–78; PULSE 51–76; RESP 16–18; TEMP 97.3–98.7; O2SAT 97–98
[2024-12-08 03:45] LABS: HEMATOCRIT 37.8 % (36-48); MEAN CORPUSCULAR HEMOGLOBIN 29.5 pg (27.0-33.0); MEAN CORPUSCULAR HGB CONC 31.5 g/dL (32.0-36.0); MEAN CORPUSCULAR VOLUME 93.8 fL (79-99); RED BLOOD CELL COUNT(AUTO) 4.03 MIL/uL (4.00-5.50); RED CELL DISTRIBUTION WIDTH 17.2 % (11.0-15.5); WHITE BLOOD COUNT (AUTO) 13.4 K/uL (4.8-10.8)
[2024-12-08 03:58] LABS: CREATININE 0.8 mg/dL (0.5-1.0); POTASSIUM 4.2 mmol/L (3.5-5.1)
[2024-12-08] MEDS ORDERED: 0.9% NACL 250ML 250 ML IV SCH (08:30)
--- NOTE | 2024-12-08 08:50 | PN ---
[facility] PROGRESS NOTE Date Patient Seen: Dec 08, 2024 Time of Visit: 08:40 Supervising Physician: Dr. Juan Willson Primary Care Physician: SHAISTA SCHUSTER MD, Dr. Outpatient Specialists: Dr. Shanelle Mast, neurology in [place], [place] Dr. Kaylah Perez, rheumatology Inpatient Consults: Dr. 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 Chronic problem list: Autoimmune neuropathy, Hypertension, hypothyroidism, hypokalemia, abnormal weight loss, leukocytosis, debility/frailty/weakness INTERVAL HISTORY: HPI: Mrs Ghosh is a 69-year-old female significant medical history of chronic debility with left arm weakness who presented to [facility] ED for evaluation of left facial numbness and weakness. Patient the patient reports chronically having issues with mobility and movement over the last several months. Patient has been treated for autoimmune nephropathy. Patient states she was at her baseline health earlier today when at 4:30 p.m. she started feeling numbness on her left face then she started with increased left leg mobility which prompted her ED visit. The patient reports that at baseline she is able to walk with a walker. She states that today she could not lift her leg out of the bed. She reports that she was recently discharged from some [place] [facility] for therapy due to her insurance not covering. She reports that she was only one week at home and now with this weakness she is back at the hospital. She reports that her financial operations consultant Dr. Mast and other physicians can tell her what is wrong with her. She reports that ER physician informed her that he spoke to Dr. Thurston, neurologist here at [facility] and that the plan is to MRI the head and all her spine. She reports that she agreed with this because she wants an answered to her problem. ED physician requested patient be admitted with the diagnosis of peripheral neuropathy. Interval history 11/29 patient is awake and oriented x3 no event overnight. Patient stated that her left-side motor function remains weak. Patient has left upper arm paralysis but was able to move bilateral lower extremity. This times is unable to do that. We will obtain MRI of the brain. Otherwise we will obtain lab in the morning. We will obtain recommendation from Neurology. Home medications. 11/30- patient is awake alert and oriented x3. She continues with generalized body weakness with increased weakness to left side. Otherwise no major overnight events. Patient is in no apparent distress. He is hemodynamically stable and afebrile. CBC unremarkable similar to yesterday with neutrophils trending down 82.9 today. ESR is 43 elevated. Chemistry is unremarkable creatinine is 1.0 GFR of 61 slightly decreased from yesterday. TSH is 3.79. Patient continues on her levothyroxine. Patient is pending MRI of the brain, thoracic, lumbar and cervical spine. Carotid ultrasound shows mild arteriosclerotic vascular disease with no identified hemodynamically significant stenosis. 12/01/24-patient is awake alert and oriented x3. She has no major complaints. other than her initial symptoms of weakness. She reporst feeling slightly better and has started to work with PT. Brain MRI shows 1 cm focus of abnormal signal diffusion weighted images to the right. Or deep central white matter extending inferiorly into the basal ganglia consensus seen with the acute stroke. On MRI of spinal lumbar 10 hours shows mild lumbar degenerative changes with no evidence of disc herniation or focal spinal stenosis. She is pending a CTA of the head and neck per neurology recommendation. Suspecting vasculitis. 2D echo shows negative bubble study. No evidence of PFO/ASD agitated saline LVEF is 50-55% with stage I diastolic dysfunction no pericardial effusion. No valvular pathology. On laboratory ESR is 43, SUSU positive. WBCs 16.9 likely from starting prednisone no fevers T-max 99 in the last 24 hours. She has been slightly hypotensive systolic blood pressure between 153-180. We will slowly bring this down. D-dimer is negative. We will continue to appreciate neurology recommendations with the plans for IR to do a lumbar puncture. 12/02/24- No major over night events, he has been hemodynamically stable his blood pressure 155/85 heart rate in the 60s sinus rhythm respiratory rate of 16 saturating 99% and afebrile. Patient reports good urine output. On laboratory WBCs are 20.5 likely reactive from steroids platelet count is [id number]. Procalcitonin less than 0.05 creatinine is good 0.7 GFR of 93 glucose of 137 mg/dL magnesium was 1.7 covered per protocol. Chest x-ray this morning shows normal single-view chest x-ray. Patient is pending a lumbar puncture IR as per [facility] with like for us to try and attempt lumbar puncture 1st. Pt is refusing for [facility] to perform LP she wants to get it done through IR. She reports increased anxiety and fear due to her neurological issues and refused to let us try LP. 12/03/24- pt is awake alert and oriented, IR will not be able to perform LP. pt agreed for us ([facility]) perform LP. Unable to perform today due to pt received her lovenox at 10 am. will hold tomorrow's am lovenox dose and plan for LP tomorrow. INR is 1.08. Pt is nervous about the procedure but it has been explained to her in detail as well as benefits and risks and she agrees with it. Otherwise no major overnight events. pt has been slightly hypertensive and hydralazine has been added PRN. Started pt on lisinopril daily and will monitor to avoid hypotension or hypertension. Pt to continue with PT. family was at bedside answered all thier questions. 12/04/24-patient well with physical therapy today and she was tired at the time of my visit. She reported she needed and nap. She is awake alert and oriented x3 easily arousable to voice. Has been at bedside. Awaiting LP. Per Dr Taveras Have anesthesia team perform LP. Informed to RN. WBCs trending down today 12.6 platelet count is normal [id number] INR is normal. Neutrophils 83.5. She has been afebrile. And chemistry unremarkable. She continues on aspirin and atorvastatin. She has been working with physical therapy, case management for DC planning. 12/05/24- patient is awake alert and oriented x3. She is anxious about lumbar puncture that is still pending. Patient is refusing for [facility] to do lumbar puncture and wants to get it done via fluoroscopy. Patient has been slightly hypertensive blood pressure 154/99 heart rate 64 respiratory rate of 18 saturating 96% on room air and afebrile. Patient reports good urine output in the one bowel movement on 12/04/24. On laboratory this morning WBCs are not improving 13.6 H&H stable. Neutrophils are trending up. BUN 27 creatinine 2.7 GFR of 93 glucose of 103 mg/dL albumin 2.6. Serology patient is positive for COVID-19. Chest x-ray in the morning. 12/06/24- patient is status post lumbar puncture per IR with no complications. She is awake alert and oriented x3. Denies any pain. No major overnight events. She is Hemodynamically stable and afebrile. Urine output 1.8 L in the last 24 hours. WBCs similar to yesterday H&H are normal platelet count 206 K neutrophils trending down 88.9 today. Kidneys are doing well creatinine 0.8 GFR of 79. Glucose 136 mg/dL total protein 5.8 albumin 2.3. Pending CSF laboratory. We will await Neurology recommendations. Chest x-ray with prominent interstitial markings seen with possible superimposed infiltrates. 12/07/2024: At the time of my evaluation, the patient was lying in bed. The staff nurse reports no major events overnight. Vital signs today showed a blood pressure of 111/59, heart rate of 60, respiration is 16, temp 98.2 SpO2 of 98%. Laboratory data today showed a slight improvement of WBC to 13.7 and a platelet of 215. Chemistry panel was unremarkable. Microbiology data did show a final CSF PCR with no findings. CSF fluid for culture showed no growth and Gram stain showed no organisms. Blood cultures preliminary are still showing no growth. No imaging for review today. Case management is on board and extended referral to [facility] rehab. No new complaint. 12/08/2024: The patient is resting in bed, lying in a supine position head of bed elevated with spouse sitting in a chair to the left side of the patient's bed, watching television friendly and conversant at the time of my evaluation. Vital signs temperature 98.8 F, (oral), blood pressure 136/78, pulse 52, respiration rate 18, oxygen saturation 98% room air. Laboratory results for today, results: BUN 29, creatinine 0.8, estimated GFR 79, WBC 13.4, (trending down from yesterday) & albumin level 2.3. CIDP S/P Lumbar Puncture 12/06/[address] Thurston. Interventions: NS 250 mL bolus x1 to address acute kidney injury superimposed on chronic kidney disease related to dehydration. Case management assisting with discharge to [place] [facility] once medically cleared with no complaint verbalize by patient nor by spouse. General: No malaise or fever. Neurological: No fainting episodes or seizures. HEENT: No nasal congestion or nasal discharge Cardiac: No chest pain or palpitations. Gastrointestinal: No vomiting or diarrhea. Genitourinary: No dysuria hematuria. Skin: No rashes or lesions. Hematological: No bruises or bleeding. Musculoskeletal: Generalized body weakness, paresthesias, more occurring on left side Psychiatric: No depression or panic attacks. PHYSICAL EXAM: PHYSICAL EXAMINATION: GENERAL: awake and following commands. HEENT: EOMI, Sclera non icteric, moist mucosa NECK: Short neck, no JVD, trachea midline LUNGS: rhonchi to left lobes, diminished to rt lower. breath sounds bilaterally. No wheezes HEART: Regular rate and rhythm. Normal S1 and S2, without murmurs ABD: Abdomen obese firm, nontender. Bowel sounds present EXT: No clubbing cyanosis or edema NEURO: Moving all extremities awake alert and following commands. Left arm flaccid patient reports left arm is at baseline. Left lower extremity unable to lift Vital Signs (last 8hr) Date Time Temp Pulse Resp B/P (MAP) Pulse Ox O2 Delivery O2 Flow Rate FiO2 12/08/24 04:56 98.8 52 18 136/78 98 Room Air 12/08/24 02:01 97.5 54 18 120/75 99 Room Air LABS: Hematology Labs: Test 12/08/24 03:33 Range/Units White Blood Count 13.4 H 4.8-10.8 K/uL Red Blood Count 4.03 4.00-5.50 MIL/uL Hemoglobin 11.9 L 12.0-16.0 g/dL Hematocrit 37.8 36-48 % Mean Corpuscular Volume 93.8 79-99 fL Mean Corpuscular Hemoglobin 29.5 27.0-33.0 pg Mean Corpuscular Hemoglobin Concent 31.5 L 32.0-36.0 g/dL Red Cell Distribution Width 17.2 H 11.0-15.5 % Platelet Count 211 130-400 K/uL Mean Platelet Volume 10.8 H 7.5-10.5 fL Nucleated Red Blood Cells 0.0 0.0-0.19 % Chemistry Labs: Test 12/08/24 05:30 12/08/24 03:33 12/07/24 14:46 12/07/24 03:34 Range/Units Whole Blood Glucose 156 H 70-110 MG/DL Sodium Level 139 136-145 mmol/L Potassium Level 4.2 3.5-5.1 mmol/L Chloride Level 106 101-111 mmol/L Carbon Dioxide Level 27 21-32 mmol/L Blood Urea Nitrogen 29 H 7-18 mg/dL Creatinine 0.8 0.5-1.0 mg/dL Glomerular Filtration Rate Calc 79 >90 mL/min Random Glucose 153 H 70-105 mg/dL Total Calcium 8.7 8.5-10.1 mg/dL Vitamin B12 Level 552 193-986 pg/mL Procalcitonin < 0.05 L 0.05-0.5 ng/mL Test 12/06/24 15:58 Range/Units Bedside Glucose Comment Notified Nurse DIAGNOSTICS / RADIOLOGY RESULTS: [ ] PLAN For now, we are going to continue current management for the patient. We will continue antibiotic therapy with IV Zosyn. Patient recently had a PICC line placed. We will await a case management input regarding acceptance to the inpatient rehab in [place]. We will continue to provide general supportive care, continuation of PUD prophylaxis, Protonix 40 mg p.o. daily and DVT pro phylaxis, Lovenox 30 mg subQ daily. Further orders per course of stay with surveillance of a.m. labs and vital signs. NEURO: Minimize central acting medications as possible. Maintain fall precautions, adequate lighting during the day PULMONARY: Supplemental 02 as needed. Maintain aspiration precautions at all times CARDIOVASCULAR: Follow hemodynamics. Vital signs per facility protocol GI & NUTRITION: Continue with nutritional support. Continue stool softeners and laxatives as needed. KIDNEYS & ELECTROLYTES: Strict monitoring of intake, output and overall fluid balance. Avoid nephrotoxic medications to the extent possible. Medications to be dosed according to renal function. Monitor electrolytes and replace as needed ENDOCRINE: Maintain blood glucose between 100-180 at all times. Hypoglycemia protocol in place INFECTIOUS DISEASE: Trend temperature, WBC and procalcitonin level Follow cultures, deescalate antibiotics as soon as possible. Panculture if new onset fever ONCOLOGY/HEMATOLOGY/COAGULATION: Monitor for s/s of bleeding Monitor hemoglobin, coagulation studies as needed SKIN: Pressure ulcer prevention per facility protocol Specialty mattress ORTHO/REHAB: Continue PT/OT Prophylaxis: Continue GI and DVT prophylaxis Code Status: Full Resuscitation Disposition: [facility] pending approval Patient was seen and case was discussed with supervising PHILLIP Alicea NP Dec 08, 2024 08:50
--- NOTE | 2024-12-08 12:40 | NUR ---
GAVE REPORT TO [place] TO TRANSFER PT TO ROOM 401
--- NOTE | 2024-12-08 13:10 | NUR ---
RECEIVED PT INTO ROOM 401 PT IS ALERT AND ORIENTED. NO DISTRESS NOTED. AT BEDSIDE.
[2024-12-08 14:09] LABS: CRYPTOCOCCUS ANTIGEN, CSF Negative (Negative)
[2024-12-09] VITALS (8 sets, daily range): BP systolic 104–157; BP diastolic 60–83; PULSE 52–75; RESP 13–20; TEMP 97.6–98.4; O2SAT 96–97
--- NOTE | 2024-12-09 02:15 | NUR ---
nursing pm note patient alert and oriented times 4. plan of care discussed with her and she verbalized understanding. patient has left sided flaccid extremities. she swallows her pills whole. she has no pain tonight. she says she is "claustrophobic" and cannot sleep tonight. she calls for assistance to turn off the tv or for water. call light within reach, bed alarm on, 2 side rails up. will continue to monitor patient.
[2024-12-09 03:56] LABS: HEMATOCRIT 38.6 % (36-48); MEAN CORPUSCULAR HEMOGLOBIN 30.1 pg (27.0-33.0); MEAN CORPUSCULAR HGB CONC 31.3 g/dL (32.0-36.0); RED BLOOD CELL COUNT(AUTO) 4.02 MIL/uL (4.00-5.50); RED CELL DISTRIBUTION WIDTH 17.2 % (11.0-15.5); WHITE BLOOD COUNT (AUTO) 10.9 K/uL (4.8-10.8)
[2024-12-09 04:08] LABS: CREATININE 0.7 mg/dL (0.5-1.0); POTASSIUM 4.2 mmol/L (3.5-5.1)
--- NOTE | 2024-12-09 15:05 | PN ---
[facility] PROGRESS NOTE Date Patient Seen: Dec 09, 2024 Time of Visit: 14:58 Supervising Physician: MISA HAZEL MD Primary Care Physician: SHAISTA SCHUSTER MD, Dr. Outpatient Specialists: Dr. Shanelle Mast, neurology in [place], [place] Dr. Kaylah Perez, rheumatology Inpatient Consults: Dr. 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 Chronic problem list: Autoimmune neuropathy, Hypertension, hypothyroidism, hypokalemia, abnormal weight loss, leukocytosis, debility/frailty/weakness INTERVAL HISTORY: HPI: Mrs Ghosh is a 69-year-old female significant medical history of chronic debility with left arm weakness who presented to [facility] ED for evaluation of left facial numbness and weakness. Patient the patient reports chronically having issues with mobility and movement over the last several months. Patient has been treated for autoimmune nephropathy. Patient states she was at her baseline health earlier today when at 4:30 p.m. she started feeling numbness on her left face then she started with increased left leg mobility which prompted her ED visit. The patient reports that at baseline she is able to walk with a walker. She states that today she could not lift her leg out of the bed. She reports that she was recently [facility] due to her insurance not covering. She reports that she was only one week at home and now with this weakness she is back at the hospital. She reports that her supervisor [employer] Dr. Mast and other physicians can tell her what is wrong with her. She reports that ER physician informed her that he spoke to Dr. Thurston, neurologist here at [facility] and that the plan is to MRI the head and all her spine. She reports that she agreed with this because she wants an answered to her problem. ED physician requested patient be admitted with the diagnosis of peripheral neuropathy. Interval history 11/29 patient is awake and oriented x3 no event overnight. Patient stated that her left-side motor function remains weak. Patient has left upper arm paralysis but was able to move bilateral lower extremity. This times is unable to do that. We will obtain MRI of the brain. Otherwise we will obtain lab in the morning. We will obtain recommendation from Neurology. Home medications. 11/30- patient is awake alert and oriented x3. She continues with generalized body weakness with increased weakness to left side. Otherwise no major overnight events. Patient is in no apparent distress. He is hemodynamically stable and afebrile. CBC unremarkable similar to yesterday with neutrophils t rending down 82.9 today. ESR is 43 elevated. Chemistry is unremarkable creatinine is 1.0 GFR of 61 slightly decreased from yesterday. TSH is 3.79. Patient continues on her levothyroxine. Patient is pending MRI of the brain, thoracic, lumbar and cervical spine. Carotid ultrasound shows mild arteriosclerotic vascular disease with no identified hemodynamically significant stenosis. 12/01/24-patient is awake alert and oriented x3. She has no major complaints. other than her initial symptoms of weakness. She reporst feeling slightly better and has started to work with PT. Brain MRI shows 1 cm focus of abnormal signal diffusion weighted images to the right. Or deep central white matter extending inferiorly into the basal ganglia consensus seen with the acute stroke. On MRI of spinal lumbar 10 hours shows mild lumbar degenerative changes with no evidence of disc herniation or focal spinal stenosis. She is pending a CTA of the head and neck per neurology recommendation. Suspecting vasculitis. 2D echo shows negative bubble study. No evidence of PFO/ASD agitated saline LVEF is 50-55% with stage I diastolic dysfunction no pericardial effusion. No valvular pathology. On laboratory ESR is 43, SUSU positive. WBCs 16.9 likely from starting prednisone no fevers T-max 99 in the last 24 hours. She has been slightly hypotensive systolic blood pressure between 153-180. We will slowly bring this down. D-dimer is negative. We will continue to appreciate neurology recommendations with the plans for IR to do a lumbar puncture. 12/02/24- No major over night events, he has been hemodynamically stable his blood pressure 155/85 heart rate in the 60s sinus rhythm respiratory rate of 16 saturating 99% and afebrile. Patient reports good urine output. On laboratory WBCs are 20.5 likely reactive from steroids platelet count is [id number]. Procalcitonin less than 0.05 creatinine is good 0.7 GFR of 93 glucose of 137 mg/dL magnesium was 1.7 covered per protocol. Chest x-ray this morning shows normal single-view chest x-ray. Patient is pending a lumbar puncture IR as per [facility] with like for us to try and attempt lumbar puncture 1st. Pt is refusing for [facility] to perform LP she wants to get it done through IR. She reports increased anxiety and fear due to her neurological issues and refused to let us try LP. 12/03/24- pt is awake alert and oriented, IR will not be able to perform LP. pt agreed for us ([facility]) perform LP. Unable to perform today due to pt received her lovenox at 10 am. will hold tomorrow's am lovenox dose and plan for LP tomorrow. INR is 1.08. Pt is nervous about the procedure but it has been explained to her in detail as well as benefits and risks and she agrees with it. Otherwise no major overnight events. pt has been slightly hypertensive and hydralazine has been added PRN. Started pt on lisinopril daily and will monitor to avoid hypotension or hypertension. Pt to continue with PT. family was at bedside answered all thier questions. 12/04/24-patient well with physical therapy today and she was tired at the time of my visit. She reported she needed and nap. She is awake alert and oriented x3 easily arousable to voice. Has been at bedside. Awaiting LP. Per Dr Taveras Have anesthesia team perform LP. Informed to RN. WBCs trending down today 12.6 platelet count is normal [id number] INR is normal. Neutrophils 83.5. She has been afebrile. And chemistry unremarkable. She continues on aspirin and atorvastatin. She has been working with physical therapy, case management for DC planning. 12/05/24- patient is awake alert and oriented x3. She is anxious about lumbar puncture that is still pending. Patient is refusing for [facility] to do lumbar puncture and wants to get it done via fluoroscopy. Patient has been slightly hypertensive blood pressure 154/99 heart rate 64 respiratory rate of 18 saturating 96% on room air and afebrile. Patient reports good urine output in the one bowel movement on 12/04/24. On laboratory this morning WBCs are not improving 13.6 H&H stable. Neutrophils are trending up. BUN 27 creatinine 2.7 GFR of 93 glucose of 103 mg/dL albumin 2.6. Serology patient is positive for COVID-19. Chest x-ray in the morning. 12/06/24- patient is status post lumbar puncture per IR with no complications. She is awake alert and oriented x3. Denies any pain. No major overnight events. She is Hemodynamically stable and afebrile. Urine output 1.8 L in the last 24 hours. WBCs similar to yesterday H&H are normal platelet count 206 K neutrophils trending down 88.9 today. Kidneys are doing well creatinine 0.8 GFR of 79. Glucose 136 mg/dL total protein 5.8 albumin 2.3. Pending CSF laboratory. We will await Neurology recommendations. Chest x-ray with prominent interstitial markings seen with possible superimposed infiltrates. 12/07/2024: At the time of my evaluation, the patient was lying in bed. The staff nurse reports no major events overnight. Vital signs today showed a blood pressure of 111/59, heart rate of 60, respiration is 16, temp 98.2 SpO2 of 98%. Laboratory data today showed a slight improvement of WBC to 13.7 and a platelet of 215. Chemistry panel was unremarkable. Microbiology data did show a final CSF PCR with no findings. CSF fluid for culture showed no growth and Gram stain showed no organisms. Blood cultures preliminary are still showing no growth. No imaging for review today. Case management is on board and extended referral to [facility] rehab. No new complaint. 12/08/2024: The patient is resting in bed, lying in a supine position head of bed elevated with spouse sitting in a chair to the left side of the patient's bed, watching television friendly and conversant at the time of my evaluation. Vital signs temperature 98.8 F, (oral), blood pressure 136/78, pulse 52, respiration rate 18, oxygen saturation 98% room air. Laboratory results for today, results: BUN 29, creatinine 0.8, estimated GFR 79, WBC 13.4, (trending d own from yesterday) & albumin level 2.3. CIDP S/P Lumbar Puncture 12/06/[address] Thurston. Interventions: NS 250 mL bolus x1 to address acute kidney injury superimposed on chronic kidney disease related to dehydration. Case management assisting with discharge to [place] rehab once medically cleared with no complaint verbalize by patient nor by spouse. 12/09/2024: Patient seen and examined by me in bed, she is having a BM on bed franco, awake and alert . Respiratory status improved, no complaints of cough or shortness of breath and is on room air. Patient denies any headache, no nausea, or vomiting. No abdominal pain tolerating po. She is s/p LP without evidence of infectious process . 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 per neurology will continue with steroids and recomend follow up with [employer] and neurology outpatient once discharged for continued care. Discussion with patient regarding above recommendations and discussion of our positive SUSU result , she states she has not been diagnosed with lupus and was told by rhematologist she does not have any rheumatological issues but is set to follow up with him within the month. At this time she is awaiting [place] inpatient [facility] for acceptance. at bedside. General: No malaise or fever. Neurological: No fainting episodes or seizures. HEENT: No nasal congestion or nasal discharge Cardiac: No chest pain or palpitations. Gastrointestinal: No vomiting or diarrhea. Genitourinary: No dysuria hematuria. Skin: No rashes or lesions. Hematological: No bruises or bleeding. Musculoskeletal: Generalized body weakness, paresthesias, more occurring on left side Psychiatric: No depression or panic attacks. PHYSICAL EXAM: PHYSICAL EXAMINATION: GENERAL: awake and following commands. HEENT: EOMI, Sclera non icteric, moist mucosa NECK: Short neck, no JVD, trachea midline LUNGS: rhonchi to left lobes, diminished to rt lower. breath sounds bilaterally. No wheezes HEART: Regular rate and rhythm. Normal S1 and S2, without murmurs ABD: Abdomen obese firm, nontender. Bowel sounds present EXT: No clubbing cyanosis or edema NEURO: Moving all extremities awake alert and following commands. Left arm flaccid patient reports left arm is at baseline. Left lower extremity unable to lift Vital Signs (last 8hr) Date Time Temp Pulse Resp B/P (MAP) Pulse Ox O2 Delivery O2 Flow Rate FiO2 12/09/24 12:00 97.9 75 13 126/61 94 Room Air 0.0 12/09/24 07:48 97.9 55 14 150/83 97 Room Air 0.0 LABS: Hematology Labs: Test 12/09/24 03:36 Range/Units White Blood Count 10.9 H 4.8-10.8 K/uL Red Blood Count 4.02 4.00-5.50 MIL/uL Hemoglobin 12.1 12.0-16.0 g/dL Hematocrit 38.6 36-48 % Mean Corpuscular Volume 96.0 79-99 fL Mean Corpuscular Hemoglobin 30.1 27.0-33.0 pg Mean Corpuscular Hemoglobin Concent 31.3 L 32.0-36.0 g/dL Red Cell Distribution Width 17.2 H 11.0-15.5 % Platelet Count 209 130-400 K/uL Mean Platelet Volume 10.3 7.5-10.5 fL Nucleated Red Blood Cells 0.0 0.0-0.19 % Chemistry Labs: Test 12/09/24 11:36 12/09/24 03:36 Range/Units Whole Blood Glucose 110 70-110 MG/DL Sodium Level 139 136-145 mmol/L Potassium Level 4.2 3.5-5.1 mmol/L Chloride Level 106 101-111 mmol/L Carbon Dioxide Level 30 21-32 mmol/L Blood Urea Nitrogen 25 H 7-18 mg/dL Creatinine 0.7 0.5-1.0 mg/dL Glomerular Filtration Rate Calc 93 >90 mL/min Random Glucose 158 H 70-105 mg/dL Total Calcium 8.8 8.5-10.1 mg/dL DIAGNOSTICS / RADIOLOGY RESULTS: [ ] PLAN For now, we are going to continue current management for the patient. We will continue antibiotic therapy with IV Zosyn. Patient recently had a PICC line placed. We will aacceptance to the inpatient rehab in [place]. We will continue to provide general supportive care, continuation of PUD prophylaxis, Protonix 40 mg p.o. daily and DVT prophylaxis, Lovenox 30 mg subQ daily. Further orders per course of stay with surveillance of a.m. labs and vital signs. Taper steroids . NEURO: Minimize central acting medications as possible. Maintain fall precautions, adequate lighting during the day PULMONARY: Supplemental 02 as needed. Maintain aspiration precautions at all times CARDIOVASCULAR: Follow hemodynamics. Vital signs per facility protocol GI & NUTRITION: Continue with nutritional support. Continue stool softeners and laxatives as needed. KIDNEYS & ELECTROLYTES: Strict monitoring of intake, output and overall fluid balance. Avoid nephrotoxic medications to the extent possible. Medications to be dosed according to renal function. Monitor electrolytes and replace as needed ENDOCRINE: Maintain blood glucose between 100-180 at all times. Hypoglycemia protocol in place INFECTIOUS DISEASE: Trend temperature, WBC and procalcitonin level Follow cultures, deescalate antibiotics as soon as possible. Panculture if new onset fever ONCOLOGY/HEMATOLOGY/COAGULATION: Monitor for s/s of bleeding Monitor hemoglobin, coagulation studies as needed SKIN: Pressure ulcer prevention per facility protocol Specialty mattress ORTHO/REHAB: Continue PT/OT Prophylaxis: Continue GI and DVT prophylaxis Code Status: Full Resuscitation Disposition: [facility] pending approval Patient was seen and case was discussed with supervising GANGA Bruce Dec 09, 2024 15:05
[2024-12-10] VITALS: BP 121/63; PULSE 58; RESP 16; TEMP 98.1
--- NOTE | 2024-12-10 01:15 | NUR ---
nursing pm note patient alert and oriented times 4. plan of care discussed with her and she verbalized understanding. patient having no pain tonight. She calls when she needs assistance with a bowel movement. she has a purewick. the patient has left sided numbness and flaccid extremities. she takes 1 pill whole at a time. No coughing or sign of aspiration. Call light within reach, bed alarm on, 2 side rails up. will continue to monitor patient.
[2024-12-10 04:00] VITALS: BP 127/64; PULSE 54; RESP 18; TEMP 97.5
[2024-12-10 07:47] VITALS: BP 134/65; PULSE 60; RESP 16; TEMP 97.7
[2024-12-10 08:00] VITALS: O2SAT 98
[2024-12-10] MEDS: predniSONE 20 MG TABLET PO SCH (08:53)
[2024-12-10 12:00] VITALS: BP 99/62; PULSE 74; RESP 17; TEMP 97.8
[2024-12-10] MEDS ORDERED: HYDR-3420 PO (15:20)
[2024-12-10] MEDS ORDERED: ASPI-1005 PO (15:20)
[2024-12-10] MEDS ORDERED: ATOR40TA69 PO (15:20)
[2024-12-10] MEDS ORDERED: LISI10TA24 PO (15:20)
--- NOTE | 2024-12-10 15:24 | DS ---
[facility] DISCHARGE SUMMARY Date Patient Seen: Dec 10, 2024 Time of Visit: 15:18 Supervising Physician: md michaela Primary Care Physician: SHAISTA SCHUSTER MD, Dr. Outpatient Specialists: Dr. Shanelle Mast, neurology in [place], [place] Dr. Kaylah Perez, rheumatology Inpatient Consults: Dr. 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 Chronic problem list: Autoimmune neuropathy, Hypertension, hypothyroidism, hypokalemia, abnormal weight loss, leukocytosis, debility/frailty/weakness HOSPITAL COURSE: "This is a 69 years old right-handed lady that has a past medical history remarkable for pulmonary fibrosis, hypothyroidism who was admitted for evaluation and management of generalized weakness. The patient states that her weakness started about eight months ago with slowly progressive muscle weakness that started on bilateral lower extremities. According to patient's she started having feet numbness that progressed into numbness and tingling in both feet and hands. Around that time the patient was also diagnosed with pulmonary fibrosis and was started on a medication that caused her to have diarrhea. She mentions that the patient went to see Dr. Mast neurologist in [facility] who diagnosed her with a mild peripheral neuropathy. Over the past four months her muscle weakness have progressed to the point that she was having difficulty ambulating. She was recently discharged from this institution after per patient she was diagnosed with hypothyroidism and needed to be better controlled subsequently the patient was treated add inpatient rehabilitation center where she was completing her therapy. The patient states that over the past 24 hours prior to admission she had a sudden onset of worsening left upper and lower extremity weakness to the point that she was not able to move both extremities. For this reason the patient came into our emergency room." Patient has been workup outpatient by [facility] repair [employer] outpatient and advised she doesnt have lupus. she is set to follow up in next 2 weeks for further testing. OF Note here she did have LP as CIDP was on differential of neurology , she was treated with steroid and will be undergoing dc to IRU and taperin of steroids. Gram stain and PCR studies negative. continue with ASA /STatin and secondary stroke prevention. RX sent to pharmacy. New Medications: Aspirin (Aspirin 81MG Chew Tab) 81 Mg Tab.chew 81 MG PO DAILY, #30 TAB.CHEW Atorvastatin Calcium (Lipitor) 40 Mg Tablet 40 MG PO DAILY, #30 TAB Hydralazine Hcl (Apresoline) 10 Mg Tablet 10 MG PO TID for 30 Days, #90 TAB Lisinopril (Lisinopril) 10 Mg Tablet 10 MG PO DAILY, #30 TAB Continued Medications: Levothyroxine Sodium (Levothyroxine Sodium) 112 Mcg Tablet 1 TAB PO DAILY for 30 Days, #30 TAB 0 Refills Mirtazapine (Mirtazapine) 30 Mg Tablet 1 TAB PO HS for 30 Days, #30 TAB 0 Refills Omeprazole (Omeprazole) 40 Mg Capsule.dr 1 CAP PO DAILY for 30 Days, #30 CAP 0 Refills Prednisone (Prednisone) 20 Mg Tablet 1 TAB PO BID for 5 Days, #10 TAB 0 Refills Discontinued Medications: Metoprolol Tartrate (Metoprolol Tartrate) 25 Mg Tablet 1 TAB PO BID for 30 Days, #60 TAB 0 Refills Prednisone (Prednisone) 20 Mg Tablet 1 TAB PO TID for 5 Days, #10 TAB 0 Refills PHYSICAL EXAM: PHYSICAL EXAMINATION: GENERAL: awake and following commands. HEENT: EOMI, Sclera non icteric, moist mucosa NECK: Short neck, no JVD, trachea midline LUNGS: rhonchi to left lobes, diminished to rt lower. breath sounds bilaterally. No wheezes HEART: Regular rate and rhythm. Normal S1 and S2, without murmurs ABD: Abdomen obese firm, nontender. Bowel sounds present EXT: No clubbing cyanosis or edema NEURO: Moving all extremities awake alert and following commands. Left arm flaccid patient reports left arm is at baseline. Left lower extremity unable to lift FOLLOW-UP: Follow-up with PCP in 2-3 days Neurology in 4 weeks [facility] in 2 weeks RECOMMENDATIONS: See Discharge Instructions This case was seen and discussed with my supervising physician. More than 30 minutes spent on discharge process, including evaluation of the patient, discussion with nursing staff, medication reconciliation and follow-up appointments GANGA DORSEY Dec 10, 2024 15:24
[2024-12-10 16:00] VITALS: BP 113/56; PULSE 68; RESP 15; TEMP 97.8
--- NOTE | 2024-12-10 18:00 | NUR ---
DISCHARGE PATIENT HAS BEEN DISCHARGED TO [facility]. PATIENT AND AT BEDSIDE VERBALIZE UNDERSTANDING OF DISCHARGE PAPERWORK. PIV REMOVED. PRESSURE GAUZE AND TAPE APPLIED TO SITE. REPORT GIVEN TO KRISTYN GILES FROM FACILITY. MED REC HAS BEEN FAXED OVER. EMS HAS BEEN CALLED, PENDING EMS.
--- NOTE | 2024-12-10 21:00 | NUR ---
DISCHARGE: EMS HERE TO TAKE PATIENT TO [facility]. IV SITE ALREADY REMOVED BY DAY SHIFT. PT VOICES NO PAIN/DISTRESS AT THE MOMENT. PERSONAL BELONGINGS TAKEN WITH PATIENT.
== END 2024-12-10 21:00 | DRG 64 ==
LOC: EDH 18:14 → EDHIP 20:58 → 2DH 11-29 15:30 → 2AH 12-01 16:51 → 4AH 12-08 13:10
PROVIDERS: ADMIT Internal Medicine Critical Care Medicine; ATTEND Internal Medicine Critical Care Medicine
PROC: 009U3ZX Drainage of Spinal Canal, Percutaneous Approach, Diagnostic (ICD-10-PCS; principal; 2024-12-06)
PROC: B01B1ZZ Fluoroscopy of Spinal Cord using Low Osmolar Contrast (ICD-10-PCS; 2024-12-06)
DX: I63.9 Cerebral infarction, unspecified (principal); J15.8 Pneumonia due to other specified bacteria; U07.1 COVID-19; I13.0 Hypertensive heart and chronic kidney disease with heart failure and stage 1 through stage 4 chronic kidney disease, or unspecified chronic kidney disease; R64 Cachexia; I50.32 Chronic diastolic (congestive) heart failure; G81.94 Hemiplegia, unspecified affecting left nondominant side; N18.9 Chronic kidney disease, unspecified; R73.9 Hyperglycemia, unspecified; R62.7 Adult failure to thrive; M47.812 Spondylosis without myelopathy or radiculopathy, cervical region; G62.9 Polyneuropathy, unspecified; M47.816 Spondylosis without myelopathy or radiculopathy, lumbar region; E03.9 Hypothyroidism, unspecified; J84.10 Pulmonary fibrosis, unspecified; E87.6 Hypokalemia; I95.9 Hypotension, unspecified; D63.1 Anemia in chronic kidney disease; E78.00 Pure hypercholesterolemia, unspecified; E86.0 Dehydration; T38.0X5A Adverse effect of glucocorticoids and synthetic analogues, initial encounter; Z79.899 Other long term (current) drug therapy; Z79.82 Long term (current) use of aspirin; Z68.20 Body mass index [BMI] 20.0-20.9, adult; Z86.16 Personal history of COVID-19; Y92.89 Other specified places as the place of occurrence of the external cause
CPT/HCPCS: 36415; 62270; 70450; 70496; 70498; 70553; 71045; 72156; 72157; 72158; 80048; 80053; 80061; 81003; 82306; 82533; 82550; 82607; 82746; 82945; 82948; 83036; 83735; 84100; 84145; 84157; 84443; 84484; 85025; 85027; 85378; 85610; 85651; 86038; 86140; 86215; 86235; 86641; 87040; 87071; 87205; 87210; 87252; 87426; 87483; 87804; 87880; 87899; 89051; 92522; 92610; 93005; 93306; 93880; 99285; G0378; J0360; J1650; J1815; J2543; J3475; J7030; Q9967; A4216

== ENCOUNTER → 2025-11-30 | Outpatient (CLI) | payer OTHER ==
[~2025-11-30] MED LIST changes: +ASPI-1005 PO; +ATOR40TA69 PO; +HYDR-3420 PO; -LEVO100T12 PO; +LEVO112T7 PO; +LISI10TA24 PO; +OMEP40CA21 PO; +PRED20TA3 PO; -PREG50CA64 PO
--- NOTE | 2025-12-01 15:00 | HMCIMG ---
STUDY MR lumbar spine without intravenous contrast HISTORY Other specified necrotizing vasculopathies. Low back pain with prior MR lumbar spine 11/30/24. TECHNIQUE Multiplanar multisequence MRI of the lumbar spine was performed without intravenous contrast. COMPARISON MR lumbar spine with and without contrast dated 11/30/24 13:41 EST. FINDINGS VERTEBRAE There are acute to subacute superior endplate compression fractures involving L1, L2, and L3, with associated marrow edema. L1 demonstrates approximately 3040 percent vertebral body height loss, L2 up to 30 percent height loss, and L3 up to 20 percent height loss. L4 shows a mild superior endplate depression with less than 10 percent height loss, without convincing marrow edema, compatible with a more chronic or indeterminate fracture. No retropulsed fragment causes high-grade canal compromise at any level. No focal destructive osseous lesion is identified. ALIGNMENT There is a mild levoscoliosis of the lumbar spine with Mann angle measuring approximately 1215 degrees. Overall sagittal alignment is preserved without high-grade listhesis. No pathologic translation is seen. SPINAL CORD AND CAUDA EQUINA The conus medullaris terminates at a normal level and demonstrates normal signal. Cauda equina nerve roots are preserved in signal; sites of thecal sac compression are level-specific as described below. FINDINGS BY LEVEL L1L2 Mild disc desiccation and height loss. No significant disc bulge. Central canal and foramina are widely patent without stenosis. L2L3 Diffuse posterior disc bulge with annular fissuring and mild disc height loss. There is associated mild to moderate facet arthrosis. These changes result in mild to moderate central canal stenosis with effacement of the ventral thecal sac but no clear cauda equina compression, and mild bilateral foraminal narrowing without high-grade nerve root compromise. L3L4 Diffuse paracentral disc disease with broad-based disc bulge and annular fissuring. Facet joints are mildly degenerated. There is mild indentation of the thecal sac without high-grade canal stenosis. Lateral recesses are mildly narrowed, but no definite compression of traversing nerve roots is seen. Foraminal narrowing is mild bilaterally. L4L5 Advanced disc degeneration with diffuse disc bulge and loss of disc height. Mild facet arthrosis is present. These findings result in ventral thecal sac indentation with overall mild central canal stenosis. There is mild right neural foraminal stenosis with perineural fat effacement and contact of the exiting right L4 nerve root, compatible with early compressive neuropathy. Left neural foramen is relatively preserved. L5S1 Diffuse disc bulge with annular fissuring without high-grade canal stenosis. Neural foramina are adequately patent. No definite nerve root compression is identified. PARASPINAL AND EXTRASPINAL SOFT TISSUES Tarlov cyst in the sacral region measures approximately 2.7 x 2.4 cm, with CSF-equivalent signal and no definite adjacent bone erosion in the lumbar field of view. Paraspinal musculature demonstrates mild chronic fatty atrophy. No paraspinal collection is seen. Deep subcutaneous edema is present in the lumbosacral region. Limited upper abdominal imaging reveals hepatomegaly with the liver measuring approximately 18 cm and diffusely increased T1/T2 signal consistent with hepatic steatosis. Gallbladder contains several small dependent calculi measuring up to 45 mm without mural thickening or pericholecystic fluid. IMPRESSION * Acute/subacute superior endplate compression fractures at L1, L2, and L3 with associated marrow edema, with approximately 3040 percent height loss at L1, up to 30 percent at L2, and up to 20 percent at L3; mild superior endplate depression at L4 with less than 10 percent height loss and no convincing edema, compatible with a chronic or age-indeterminate fracture. No retropulsion causing high-grade canal compromise. * Multilevel degenerative disc disease and facet arthrosis: L2L3: Diffuse disc bulge with annular fissure and mild to moderate central canal stenosis and foraminal narrowing, but no definite cauda equina compression. L3L4: Diffuse paracentral disc bulge with annular fissuring causing mild thecal sac indentation and mild lateral recess and foraminal narrowing without high-grade neural compromise. 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 L5S1: Diffuse disc bulge and annular fissuring without significant canal or foraminal stenosis. * Mild lumbar levoscoliosis with Mann angle of approximately 1215 degrees. * Incidental findings include hepatomegaly with diffuse fatty liver, cholelithiasis without imaging evidence of acute cholecystitis, a 2.7 x 2.4 cm Tarlov cyst, paraspinal muscular atrophy, and deep subcutaneous edema in the lumbosacral region. /[place]
== END | disposition home or self-care (01) ==
LOC: RAH 14:48
PROVIDERS: ATTEND Internal Medicine
DX: M48.56XA Collapsed vertebra, not elsewhere classified, lumbar region, initial encounter for fracture (principal); M47.816 Spondylosis without myelopathy or radiculopathy, lumbar region; M31.8 Other specified necrotizing vasculopathies; M51.370 Other intervertebral disc degeneration, lumbosacral region with discogenic back pain only; M51.369 Other intervertebral disc degeneration, lumbar region without mention of lumbar back pain or lower extremity pain; M48.061 Spinal stenosis, lumbar region without neurogenic claudication; M41.86 Other forms of scoliosis, lumbar region; G62.9 Polyneuropathy, unspecified
CPT/HCPCS: 72148